=== PATIENT | male | born 1940 | race Caucasian/White ===

== ENCOUNTER 2019-08-29 09:46 | Emergency (ER) | payer OTHER, MEDICARE, SELFPAY ==
[2019-08-29 09:54] VITALS: BP 157/73; PULSE 55; RESP 16; TEMP 36.7; O2SAT 97
--- NOTE | 2019-08-29 10:23 | DI.CT_ITS ---
EXAM: CT SINUS W CLINICAL HISTORY: Concern for right mastoiditis. TECHNIQUE: A with contrast-enhanced sinus CT was carried out with intravenous administration of 70 c c of Omnipaque 350. COMPARISON: No exams were available for comparison FINDINGS: The paranasal sinuses are unremarkable save for a small retention cyst involving the sphenoid. There is no evidence of a mastoid effusion. As visualized the middle ear cavity and exterior auditory federico ls are intact. IMPRESSION: Aside from a very small sphenoid retention cyst, the sinuses are normal. There is nothing to suggest mastoiditis.
--- NOTE | 2019-08-29 10:30 | ED.GENADUL_ITS ---
Discharge Plan Disposition Patient Disposition: HOME Condition: Stable Discharge Details Chief Complaint: Cellulitis Clinical Impression: Cellulitis of face Primary Care Provider: Grazyna Colón ED Provider: Daniel Wyatt Home Meds and New Rx's Prescriptions: New amoxicillin-pot clavulanate [Augmentin] 875-125 mg tablet 1 tab PO BID Qty: 14 RF: 0 Continued atorvastatin 20 mg Tablet 20 mg PO DAILY RF: 0 cyanocobalamin (vitamin B-12) 1,000 mcg Tablet 1,000 mcg PO DAILY RF: 0 spironolactone 25 mg Tablet 12.5 mg PO DAILY RF: 0 amlodipine 10 mg Tablet 10 mg PO DAILY RF: 0 clonidine 0.3 mg/24 hr Patch Weekly 1 patch TRANSDERMAL QWEEK RF: 0 ergocalciferol (vitamin D2) 50,000 unit Capsule 50,000 unit PO QWEEK RF: 0 losartan 100 mg Tablet 100 mg PO DAILY RF: 0 aspirin [Aspirin Low Dose] 81 mg Tablet,Delayed Release (Dr/Ec) 81 mg PO DAILY RF: 0 Discharge Instructions Instructions: Cellulitis (ED) Additional Instructions: It is very important that you take your medication every 12 hours and return to the emergency department for any worsening symptoms or further concerns. If you remain stable you may return to the emergency department tomorrow morning for reassessment and reconsideration of admission. Referrals: [facility] Emergency Dept. [Outside] - 08/30/19 8:00 am (Return tomorrow morning for reassessment of your infection) Discharge Data Discharge Date/Time-TO BE ENTERED AT DEPARTURE: 08/29/19 15:55 Medical Decision Making Patient presenting to the emergency room for chief complaint of right ear pain. Patient states that 3 days ago he started having some discomfort to his right ear which now has turned into significant amount of swelling and pain. Patient states significant amount of malaise for the last 24 hours but denies any fever chills. Patient does state he had a similar episode to this approximately 30 years ago and was hospitalized with need of antibiotics and consideration of possible surgery. Patient said that that episode resolved just with antibiotics never needed surgery. Patient denies any injury or trauma. Physical exam shows significant erythema and edema to the right ear. This includes tenderness to the right mastoid, preauricular area along with the ear itself. Ear canal is significantly edematous and erythematous making it impossible to see the right TM. HEENT exam is otherwise unremarkable with no other noted findings. I am significantly concerned for infection including mastoiditis so plan to check labs, blood cultures, and CT imaging. After blood cultures drawn patient was ordered vancomycin and Zosyn pending results. Labs were reviewed and show a mild leukocytosis, patient does have decreased renal function so discussed with patient continuing with CT scan and adjusted dose which after discussion of risks versus benefit patient was in agreement with this. Patient's lactate is normal and labs are otherwise nondiagnostic. Review of CT imaging and speaking with radiologist shows no acute mastoiditis. Patient reassessed and remained stable. Patient was agreeable to admission as I feel that patient needs continued IV antibiotics for facial cellulitis. Melissa cunningham and very she does not have any beds available so contacted the [place] which patient gets his care mainly through. They had only bed availability for ICU level transfers and all other local beds were on a [id number] scenario. In discussing further transfer for the patient he reported that he would prefer to go home. Did discuss in detail risk versus benefit of inpatient care versus home care. In the end we agreed upon a plan of care for patient to return immediately for any significant worsening of symptoms otherwise patient to be discharged home and to return to the emergency department tomorrow morning for reassessment. Patient started on Augmentin and given first dose and tomorrow morning dose before he left. Patient and significant other both state clear understanding to return for worsening symptoms. After discussion of diagnosis and plan of care patient has no further needs, questions, or concerns and states clear understanding to return to the emergency department for any worsening symptoms. HPI General Mode of arrival: ambulatory . Date/Time Provider Initiated Documentation: 08/29/19 09:47 . Limitations to Documentation: no limitations . Information obtained by: patient and RN notes reviewed . History of Present Illness 79 year old M presents to the emergency department with the chief complaint of Right ear pain and swelling, described as moderate and similar to prior episodes, with intensity rated at 5. Quality is described as aching, and is localized to the right (ear). Patient started experiencing this day(s) (3) and it has been constant. No relieving factors improve symptom(s), No exacerbating factors reported . Patient did receive the following treatments prior to arrival, none Related Data Home Medications Medication Instructions Recorded Confirmed amlodipine 10 mg PO DAILY 08/29/19 08/29/19 amoxicillin-pot clavulanate 1 tab PO BID #14 tab 08/29/19 [Augmentin] aspirin [Aspirin Low Dose] 81 mg PO DAILY 08/29/19 08/29/19 atorvastatin 20 mg PO DAILY 08/29/19 08/29/19 clonidine 1 patch TRANSDERMAL QWEEK 08/29/19 08/29/19 cyanocobalamin (vitamin B-12) 1,000 mcg PO DAILY 08/29/19 08/29/19 ergocalciferol (vitamin D2) 50,000 unit PO QWEEK 08/29/19 08/29/19 losartan 100 mg PO DAILY 08/29/19 08/29/19 spironolactone 12.5 mg PO DAILY 08/29/19 08/29/19 Previous Rx's Medication Instructions Recorded amoxicillin-pot clavulanate 1 tab PO BID #14 tab 08/29/19 [Augmentin] Allergies Allergy/AdvReac Type Severity Reaction Status Date / Time No Known Allergies Allergy Unverified 08/29/19 09:54 General Stated Complaint: Cellulitis SHABANA: 3 Review of Systems Constitutional Constitutional: Denies chills, Denies fever(s), Denies headache(s) and Reports malaise ENT Ears, Nose, Mouth, and Throat: Reports as per HPI, Reports vertigo, Denies ear discharge, Reports otalgia, Reports facial pain, Denies headache(s), Denies hearing loss, Denies nasal congestion and Denies sore throat Cardiovascular Cardiovascular: Denies dyspnea Respiratory Respiratory: Denies cough and Denies dyspnea Integumentary/Breasts Skin/Breast: Reports skin pain and Reports skin swelling (right ear) Neurologic Neurologic: Reports vertigo and Denies headache(s) [facility] Social History Smoking/Tobacco Use Status: Current every day Alcohol Intake: never Drug use: Never Substance use type: does not use Do you feel safe at home: Yes Do you feel safe in your relationship?: Yes Exam Const General: cooperative and comfortable Orientation: alert and awake HENMT Ears: hearing grossly normal bilaterally, EAC abnormal erythema on the right, edema on the right and EAC tenderness on the right, external ear abnormal auricular tenderness on the right and pain with movement of external ear on the right, mastoid abnormal (tenderness right ), periauricular adenopathy on the right and unable to visualize TM on the right General nose exam: external nose normal Face and sinus: normal facial exam and sinuses nontender Mouth: oral mucosae normal, lip normal and tongue normal Throat: posterior oropharynx normal, tonsils normal and uvula midline Neck Neck: normal visual inspection, full ROM, no lymphadenopathy, no meningeal signs, trachea midline and supple Resp Effort & Inspection: normal respiratory effort and able to speak in complete sentences Auscultation: clear to auscultation bilaterally Cardio Rate: regular rate Rhythm: regular rhythm Neuro General: alert, awake, gait normal, moves all extremities and CN's II-XI intact bilaterally Course Vital Signs Vital signs: Vital Signs Temperature 36.7 C 08/29/19 09:54 Pulse 55 L 08/29/19 09:54 Respiratory Rate 16 08/29/19 09:54 Blood Pressure 157/73 H 08/29/19 09:54 Pulse Oximetry 97 08/29/19 09:54 Temperature 36.7 C 08/29/19 09:54 Temperature Source Temporal Artery Scan 08/29/19 09:54 Pulse 55 L 08/29/19 09:54 Respiratory Rate 16 08/29/19 09:54 Respiratory Effort Non-Labored 08/29/19 09:57 Blood Pressure 157/73 H 08/29/19 09:54 Blood Pressure Position Sitting 08/29/19 09:54 Pulse Oximetry 97 08/29/19 09:54 Oxygen Delivery Method Room Air 08/29/19 09:54 Oxygen Flow Rate 0 08/29/19 09:54 Pain Level 5 08/29/19 09:54 Lab/Test Results Lab/Test Results: 08/29/19 10:09 Blood Blood Culture - Pending 08/29/19 10:09 Blood Blood Culture - Pending
[2019-08-29 10:52] LABS: Abs Immature Grans 0.04 k/cumm (0.0-0.09); Absolute Eosinophil Count 0.22 k/cumm (0.0-0.7); Absolute Lymphocyte Count 1.11 k/cumm (1.2-3.4); Basophils % 0.4; Eosinophils % 1.9; HCT 43.9 % (40.0-50.0); Immature Grans % 0.4; Lymphocytes % 9.7; Mean Corp. HGB Concentration 34.2 g/dL (32.0-36.0); Mean Corpuscular Hemoglobin 30.1 pg (27.0-33.0); Mean Platelet Volume 9.6 fL (8.0-11.0); Monocytes % 10.5; Neutrophils % 77.1; Platelet Count 218 x1000/uL (130-400); RBC 4.99 m/cumm (4.50-6.00); White Blood Cell Count 11.42 k/cumm (4.4-10.8)
[2019-08-29] MEDS: PIPERACILLIN/TAZO 4.5 GM in Normal Saline 100 ML IVPB (10:52)
[2019-08-29 10:53] LABS: Absolute Basophil Count 0.05 k/cumm (0.0-0.2)
[2019-08-29 10:59] VITALS: BP 120/58; PULSE 50; RESP 18; TEMP 36.8; O2SAT 96
[2019-08-29 11:15] LABS: ALT 24 U/L (16-63); AST 12 U/L (15-37); Albumin 3.5 g/dL (3.4-5.0); Alkaline Phosphatase 103 U/L (46-116); Anion Gap 14.7 mmol/L (3-11); BUN 31 mg/dL (7-18); Bilirubin, Total 0.8 mg/dL (0.2-1.0); CO2 22.3 mmol/L (21.0-32.0); CREATININE 2.05 mg/dL (0.70-1.30); Calcium 8.6 mg/dL (8.5-10.1); Chloride 101 mmol/L (98-107); Estimated GFR 31.48 (mL/min/1.73m2); Glucose 266 mg/dL (70-100); Potassium 4.2 mmol/L (3.5-5.1); Sodium 138 mmol/L (136-145); Total Protein 7.7 g/dL (6.4-8.2)
[2019-08-29] MEDS: Normal Saline 500 ML IV ×2 (11:56→14:17)
[2019-08-29] MEDS: Omnipaque 350 MG/ML 100 ML BTL IV (13:06)
[2019-08-29 13:55] VITALS: BP 152/71; PULSE 50; TEMP 35.8; O2SAT 90
[2019-08-29 15:17] VITALS: BP 143/60; PULSE 55; RESP 16; TEMP 36.7; O2SAT 97
[2019-08-29] MEDS: Amoxicillin 875/Clav. 125 TAB PO (15:42)
[2019-08-29] MEDS: Amoxicillin 875/Clav. 125 TAB (15:52)
[2019-08-29 15:54] VITALS: BP 143/60; PULSE 55; RESP 16; TEMP 36.7; O2SAT 97
== END 2019-08-29 15:55 | disposition home or self-care (01) ==
PROVIDERS: Emergency Provider Nurse Practitioner Family; PCP Student in an Organized Health Care Education/Training Program
DX: H60.11 Cellulitis of right external ear (principal)
CPT/HCPCS: 80053; 87040; 96361; 96365; 96366; 96367; 99285; 70487; 83605; 85025; 99284; J2543; J3370; J3490

== ENCOUNTER 2019-08-30 08:31 | Inpatient (IN) | payer OTHER, MEDICARE, SELFPAY ==
[2019-08-30 08:37] VITALS: BP 160/76; PULSE 58; RESP 18; TEMP 36.1; O2SAT 95
--- NOTE | 2019-08-30 08:52 | ED.GENADUL_ITS ---
Discharge Plan Disposition Patient Disposition: [facility] INPATIENT Condition: Stable Discharge Details Chief Complaint: Cellulitis Clinical Impression: Cellulitis of ear Admit Date/Time: 08/30/19 11:30 Admit Provider: Johnna Gabriel Attending Provider: Johnna Gabriel Primary Care Provider: Grazyna Colón ED Provider: Daniel Wyatt Discharge Instructions Forms: Nursing Discharge Form Referrals: Grazyna Colón [Primary Care Provider] - Medical Decision Making Patient presenting to the emergency department for recheck of facial cellulitis. Patient was seen by myself yesterday afternoon and due to bed availability we attempted outpatient therapy. Patient was given vancomycin and Zosyn and sent home on Augmentin. Patient states some sensation of slight reduction of swelling, denies any fever chills, states continued pain and discomfort. Physical exam shows continued significant erythema to the right ear throughout its entirety with swelling, erythema to the posterior aspects of the mastoid, and preauricular swelling and erythema now extending to the corner of the orbit and more on the forehead. Patient otherwise appears nontoxic, non-hypotensive, and is afebrile. Given that erythema has spread and advanced more on to the face I do feel again that IV labs and antibiotics are required. Patient given vancomycin and Unasyn. Patient is already pending blood cultures from yesterday's visit. Spoke with [facility] transfer center and they reported that they were only taking ICU level patients at this time. I feel the patient does require admission for continued IV antibiotics given worsening erythema and spread our hospitalist was consulted. After discussion with hospitalist she does state appropriate concern for consideration of malignant otitis externa. I did speak with radiologist in regards to yesterday scan and he notes nothing on CT imaging. I also consulted ENT and spoke with Dr. Noe. Spoke with Dr. Noe and reviewed CT imaging along with labs and patient condition with him. He recommended continued IV antibiotics to include vancomycin and Zosyn. He did state that at this time did not feel that patient needed emergent surgical consultation but if needed he may be recontacted. Patient admitted to hospitalist service and recommendations were communicated. HPI General Mode of arrival: ambulatory . Date/Time Provider Initiated Documentation: 08/30/19 08:32 . Limitations to Documentation: no limitations . Information obtained by: patient and RN notes reviewed . History of Present Illness 79 year old M presents to the emergency department with the chief complaint of Facial cellulitis, described as moderate, with intensity rated at 5. Quality is described as aching, and is localized to the face. Patient started experiencing this day(s) (4) and it has been constant. No relieving factors improve symptom(s), No exacerbating factors reported . Patient notes no other symptoms.. Patient did receive the following treatme nts prior to arrival, other (Took his prescribed Augmentin) Related Data Home Medications Medication Instructions Recorded Confirmed amlodipine 10 mg PO DAILY 08/29/19 08/30/19 amoxicillin-pot clavulanate 1 tab PO BID #14 tab 08/29/19 08/30/19 [Augmentin] aspirin [Aspirin Low Dose] 81 mg PO DAILY 08/29/19 08/30/19 atorvastatin 20 mg PO DAILY 08/29/19 08/30/19 clonidine 1 patch TRANSDERMAL QWEEK 08/29/19 08/30/19 cyanocobalamin (vitamin B-12) 1,000 mcg PO DAILY 08/29/19 08/30/19 ergocalciferol (vitamin D2) 50,000 unit PO QWEEK 08/29/19 08/30/19 losartan 100 mg PO DAILY 08/29/19 08/30/19 spironolactone 12.5 mg PO DAILY 08/29/19 08/30/19 Previous Rx's Medication Instructions Recorded amoxicillin-pot clavulanate 1 tab PO BID #14 tab 08/29/19 [Augmentin] Allergies Allergy/AdvReac Type Severity Reaction Status Date / Time No Known Allergies Allergy Unverified 08/30/19 08:43 General Stated Complaint: Cellulitis SHABANA: 3 Review of Systems Constitutional Constitutional: Denies body ache(s), Denies chills and Denies fever(s) Cardiovascular Cardiovascular: Denies chest pain and Denies dyspnea Respiratory Respiratory: Denies dyspnea Integumentary/Breasts Skin/Breast: Reports as per HPI, Reports erythema, Reports skin pain and Reports skin swelling Neurologic Neurologic: Denies confusion and Denies sensory deficit Psychiatric Psychiatric: Denies confusion [facility] Social History Smoking/Tobacco Use Status: Former Tobacco Use Alcohol Intake: never Drug use: Never Substance use type: does not use Do you feel safe at home: Yes Do you feel safe in your relationship?: Yes Exam Const General: cooperative, no acute distress and not ill appearing Orientation: alert, awake and oriented x3 HENMT Ears: hearing grossly normal bilaterally and unable to visualize TM on the right General nose exam: external nose normal Mouth: moist mucous membranes Throat: posterior oropharynx normal, tonsils normal and uvula midline Neck Neck: normal visual inspection, full ROM, no meningeal signs, trachea midline and lymphadenopathy right anterior cervical rubbery and tender Resp Effort & Inspection: normal respiratory effort, able to speak in complete sentences and no respiratory distress Cardio Rate: regular rate Rhythm: regular rhythm Heart Sounds: S1 normal and S2 normal Skin Rashes: rashes noted swelling right ear color red and with an erythematous base and surface erythematous; fluctuant not assessed Neuro General: alert, awake, oriented x3, moves all extremities and no focal motor deficits Sensory Exam: no sensory deficits noted Course Vital Signs Vital signs: Vital Signs Temperature 36.1 C L 08/30/19 08:37 Pulse 58 L 08/30/19 08:37 Respiratory Rate 18 08/30/19 08:37 Blood Pressure 160/76 H 08/30/19 08:37 Pulse Oximetry 95 08/30/19 08:37 Temperature 36.1 C L 08/30/19 08:37 Temperature Source Tympanic 08/30/19 08:37 Pulse 58 L 08/30/19 08:37 Respiratory Rate 18 08/30/19 08:37 Respiratory Effort Non-Labored 08/30/19 08:41 Blood Pressure 160/76 H 08/30/19 08:37 Blood Pressure Position Sitting 08/30/19 08:37 Pulse Oximetry 95 08/30/19 08:37 Oxygen Delivery Method Room Air 08/30/19 08:37 Oxygen Flow Rate 0 08/30/19 08:37
[2019-08-30 09:10] LABS: Lactate 0.9 mmol/L (0.6-1.4)
[2019-08-30 09:13] LABS: Abs Immature Grans 0.05 k/cumm (0.0-0.09); Absolute Basophil Count 0.04 k/cumm (0.0-0.2); Absolute Eosinophil Count 0.27 k/cumm (0.0-0.7); Absolute Lymphocyte Count 1.39 k/cumm (1.2-3.4); Absolute Monocyte Count 1.45 k/cumm (0.11-0.7); Absolute Neutrophil Count 7.46 k/cumm (1.2-6.7); Basophils % 0.4; Eosinophils % 2.5; HCT 40.8 % (40.0-50.0); HGB 14.2 g/dL (13.5-17.5); Immature Grans % 0.5; Mean Corp. HGB Concentration 34.8 g/dL (32.0-36.0); Mean Corpuscular Hemoglobin 30.5 pg (27.0-33.0); Mean Corpuscular Volume 87.6 fL (80-95); Mean Platelet Volume 9.6 fL (8.0-11.0); Monocytes % 13.6; Platelet Count 234 x1000/uL (130-400); RBC 4.66 m/cumm (4.50-6.00); RBC Distribution Width 12.9 % (11.8-14.1); White Blood Cell Count 10.66 k/cumm (4.4-10.8)
[2019-08-30] MEDS: Acetaminophen 325 MG TAB 650 MG PO (09:17)
[2019-08-30] MEDS: AMPICILLIN/SULBACTAM 3 GM in Normal Saline 100 ML IVPB (09:18)
[2019-08-30 09:34] LABS: ALT 28 U/L (16-63); AST 13 U/L (15-37); Albumin 3.3 g/dL (3.4-5.0); Alkaline Phosphatase 89 U/L (46-116); Anion Gap 10.7 mmol/L (3-11); BUN 26 mg/dL (7-18); CO2 23.3 mmol/L (21.0-32.0); CREATININE 1.99 mg/dL (0.70-1.30); Chloride 101 mmol/L (98-107); Estimated GFR 32.58 (mL/min/1.73m2); Glucose 227 mg/dL (70-100); Potassium 3.8 mmol/L (3.5-5.1); Sodium 135 mmol/L (136-145); Total Protein 7.4 g/dL (6.4-8.2)
[2019-08-30 10:33] LABS: C-Reactive Protein 7.02 mg/dL (0.0-0.3)
[2019-08-30 10:38] LABS: Hemoglobin A1C 8.9 % (4.5-6.2)
[2019-08-30 11:00] LABS: ESR 30 mm/hr (1-20)
[2019-08-30 12:21] LABS: Procalcitonin 0.3 ng/mL
[2019-08-30] MEDS: VANCOMYCIN 1,250 MG in Normal Saline 250 ML 166.667 MG IV (13:42)
--- NOTE | 2019-08-30 14:04 | W.PM.HP.N ---
Date of service: 08/30/19 Time of Service: 14:04 Assessment and Plan Assessment and plan (1) Cellulitis of right ear: Status: Acute Assessment and plan: Case discussed with ENT, recommend IV Vanco and Zosyn. CRP elevated. No leukocytosis. Blood cultures with no growth at 24 hours. Wound culture pending. Continue to monitor culture results. Repeat labs tomorrow morning. Continue IV antibiotics. (2) SANTOS (acute kidney injury): Status: Acute Assessment and plan: Hold ARB and aldactone. Continue IV fluids. Repeat BMP tomorrow morning. UA pending. (3) Diabetes: Status: Chronic Assessment and plan: Not a new diagnosis. Previously on oral agent, currently diet controlled. A1c elevated at 8.9. Monitor blood glucose at , cover with short acting insulin via sliding scale. (4) Hypertension: Status: Chronic Assessment and plan: Continue clonidine patch and amlodipine. Hold aldactone and losartan in the setting of SANTOS. Monitor blood pressure. (5) Hyperlipidemia: Status: Chronic Assessment and plan: Continue statin therapy. (6) DVT prophylaxis: Status: Acute Assessment and plan: Subcutaneous heparin. (7) Discharge planning issues: Status: Acute Assessment and plan: He is a FULL CODE. This case was discussed with Dr. Gabriel who is in agreement. History of Present Illness History of Present Illness Chief Complaint: Right ear cellulitis Narrative: Jimbo Viramontes is a 79 year old man with a past medical history significant for hypertension, hyperlipidemia and diet controlled diabetes (previously on oral agent), who initially presented [facility] ED yesterday with reports of a one day history of right ear pain and swelling. He had mild leukocytosis at that time, he was afebrile. He had a CT which showed a very small sphenoid retention cyst, but nothing to suggest mastoiditis. Blood cultures were obtained. He was given one dose of IV Zosyn and Vancomycin. He was considered for admission at that time, however, there were no beds available, so he was discharged home on Augmentin. He returned back to the ED today with reports of ongoing right ear pain and swelling. He states he had a headache last night and did not sleep well due to the discomfort in his ear. In the ED, his labs were notable for elevated BUN at 26 and creatinine of 1.99 (slightly improved from the day prior). The leukocytosis noted on the day prior had resolved. His CRP was elevated at 7.02. His glucose was elevated and his Hgb A1c was noted to be 8.9. His blood cultures show no growth at 24 hours. The ER attending provider discussed his case with Dr. Noe, who recommended Vancomycin and Zosyn. At the time of his admission to the med/surg floor, he reports that his right ear already feels better. He continues to have tenderness to the right external ear. He is afebrile. He denies any fevers or chills at home. He did not sleep well last night due to pain, he is tired today. He has had a poor appetite for 2-3 days, he denies nausea, vomiting or diarrhea. He denies dizziness or lightheadedness, but he does feel off-balance at times. His hearing is muffled in his right ear. No vision changes. He denies shortness of breath, coughing, wheezing, chest pain/pressure, he occasionally has lower extremity edema. He has not been having regular bowel movements over the last 2 days. He endorses urinary frequency and urgency, no dysuria or hematuria. UA pending. He denies any injury to his ear. He recalls having cellulitis of an ear 30 years ago, he is not sure which ear. He also endorses a history of diabetes, he was previously on an oral agent, however his A1c improved and he was controlling his glucose with his diet. Review of Systems All systems reviewed & are unremarkable except as noted in HPI and below PFSH Medical History (Updated 08/30/19 @ 14:49 by Kaitlyn Mirza NP) Diabetes (Chronic) Hyperlipidemia (Chronic) Hypertension (Chronic) Social History Smoking/Tobacco Use Status: Former Tobacco Use Alcohol Intake: never Drug use: Never Substance use type: does not use Do you feel safe at home: Yes Do you feel safe in your relationship?: Yes Meds Home Medications and Allergies Home Medications Medication Instructions Recorded Confirmed Type amlodipine 10 mg PO DAILY 08/29/19 08/30/19 History amoxicillin-pot clavulanate 1 tab PO BID #14 tab 08/29/19 08/30/19 Rx [Augmentin] aspirin [Aspirin Low Dose] 81 mg PO DAILY 08/29/19 08/30/19 History atorvastatin 20 mg PO DAILY 08/29/19 08/30/19 History clonidine 1 patch TRANSDERMAL QWEEK 08/29/19 08/30/19 History cyanocobalamin (vitamin B-12) 1,000 mcg PO DAILY 08/29/19 08/30/19 History ergocalciferol (vitamin D2) 50,000 unit PO QWEEK 08/29/19 08/30/19 History losartan 100 mg PO DAILY 08/29/19 08/30/19 History spironolactone 12.5 mg PO DAILY 08/29/19 08/30/19 History Allergies Allergy/AdvReac Type Severity Reaction Status Date / Time No Known Allergies Allergy Unverified 08/30/19 08:43 Exam Narrative Exam Narrative: General: well appearing man, sitting up in the chair, alert and oriented, pleasant and cooperative, answers questions appropriately. HEENT: right ear with swelling, erythema of external ear and surrounding ear extending approximately 2 inches around ear, and extending to right lateral orbit. Erythema does extend to the eye. EOMI, no pain with EOM. No vision changes. There is no active drainage. R TM with erythema. R ear tender on palpation. Hearing intact. Left ear with normal external ear exam. Mucous membranes slightly dry. Neck: supple. Cardiovascular: heart has regular rate and rhythm, no murmur appreciated. Respiratory: respirations even and unlabored, lung sounds clear to auscultation bilaterally. GI: normoactive bowel sounds, abdomen soft, nontender on palpation, no masses appreciated. Extremities: trace edema to right ankle. Moves all extremities with equal strength. Results Labs Result diagrams: 08/31/19 06:30 08/31/19 06:30 Labs: Laboratory Results - last 24 hr 08/30/19 08/30/19 08/30/19 09:00 09:00 09:00 WBC 10.66 RBC 4.66 Hgb 14.2 Hct 40.8 MCV 87.6 MCH 30.5 MCHC 34.8 RDW 12.9 Plt Count 234 MPV 9.6 Immature Gran % 0.5 Neutrophils % 70.0 Lymphocytes % 13.0 Monocytes % 13.6 Eosinophils % 2.5 Basophils % 0.4 Absolute Neutrophils 7.46 H Absolute Lymphocytes 1.39 Absolute Monocytes 1.45 H Absolute Eosinophils 0.27 Absolute Basophils 0.04 ESR Sodium 135 L Potassium 3.8 Chloride 101 Carbon Dioxide 23.3 Anion Gap 10.7 BUN 26 H Creatinine 1.99 H Estimated GFR/1.73 m2 32.58 Glucose 227 H Hemoglobin A1c Lactate 0.9 Calcium 9.0 Total Bilirubin 1.0 AST 13 L ALT 28 Alkaline Phosphatase 89 C-Reactive Protein Total Protein 7.4 Albumin 3.3 L Procalcitonin 08/30/19 08/30/19 08/30/19 09:00 09:00 09:00 WBC RBC Hgb Hct MCV MCH MCHC RDW Plt Count MPV Immature Gran % Neutrophils % Lymphocytes % Monocytes % Eosinophils % Basophils % Absolute Neutrophils Absolute Lymphocytes Absolute Monocytes Absolute Eosinophils Absolute Basophils ESR 30 H Sodium Potassium Chloride Carbon Dioxide Anion Gap BUN Creatinine Estimated GFR/1.73 m2 Glucose Hemoglobin A1c 8.9 H Lactate Calcium Total Bilirubin AST ALT Alkaline Phosphatase C-Reactive Protein 7.02 H Total Protein Albumin Procalcitonin 08/30/19 09:00 WBC RBC Hgb Hct MCV MCH MCHC RDW Plt Count MPV Immature Gran % Neutrophils % Lymphocytes % Monocytes % Eosinophils % Basophils % Absolute Neutrophils Absolute Lymphocytes Absolute Monocytes Absolute Eosinophils Absolute Basophils ESR Sodium Potassium Chloride Carbon Dioxide Anion Gap BUN Creatinine Estimated GFR/1.73 m2 Glucose Hemoglobin A1c Lactate Calcium Total Bilirubin AST ALT Alkaline Phosphatase C-Reactive Protein Total Protein Albumin Procalcitonin 0.3 Last Vital Signs Temp 36.1 C L 08/30/19 08:37 Pulse 58 L 08/30/19 08:37 Resp 18 08/30/19 08:37 BP 160/76 H 08/30/19 08:37 Pulse Ox 95 08/30/19 08:37
[2019-08-30] MEDS: Heparin 5,000 UNITS/ML VIAL 5000 UNITS SC ×2 (16:54→22:10)
[2019-08-30 17:06] VITALS: BP 169/79; PULSE 46; RESP 16; TEMP 36.6; O2SAT 98
[2019-08-30 19:15] VITALS: BP 152/81; PULSE 47; RESP 18; TEMP 36.8; O2SAT 100
[2019-08-30] MEDS: Atorvastatin 20 MG TAB PO (19:39)
[2019-08-30] MEDS: amLODIPine 10 MG TAB PO (19:39)
[2019-08-30] MEDS: Normal Saline Flush 10 ML SYR IVP (19:40)
[2019-08-30 21:40] VITALS: BP 196/91
[2019-08-30 22:23] LABS: Bilirubin Negative (Negative); Blood Negative (Negative); Clarity Clear (Clear); Glucose 250 mg/dL (Negative); Ketones Negative (Negative); Leukocyte Esterase Negative (Negative); Nitrite Negative (Negative)
[2019-08-30 22:32] LABS: Bacteria Negative HPF (Negative); C & S Indicated? No; Casts Negative LPF (Negative); Crystals Negative HPF (Negative); Epithelial Cells Negative HPF (Negative); Mucus Negative (Negative); Other Cells Negative (Negative); RBC Negative (0-2); WBC 0-2 HPF (0-5)
[2019-08-30] MEDS: Insulin Aspart 300 UNITS/3 ML PEN SC (22:37)
[2019-08-30] MEDS: Normal Saline 1,000 ML 150 ML IV (22:39)
[2019-08-31] VITALS (7 sets, daily range): BP systolic 125–143; BP diastolic 54–84; PULSE 42–60; RESP 14–19; TEMP 36.4–37.5; O2SAT 95–100
[2019-08-31] MEDS: Acetaminophen 325 MG TAB PO ×3 (04:42→17:14)
[2019-08-31] MEDS: Normal Saline 1,000 ML 150 ML IV ×2 (04:43→12:02)
[2019-08-31] MEDS: Heparin 5,000 UNITS/ML VIAL 5000 UNITS SC ×3 (06:36→21:34)
[2019-08-31 07:23] LABS: Abs Immature Grans 0.04 k/cumm (0.0-0.09); Absolute Basophil Count 0.05 k/cumm (0.0-0.2); Absolute Eosinophil Count 0.41 k/cumm (0.0-0.7); Absolute Lymphocyte Count 1.66 k/cumm (1.2-3.4); Absolute Monocyte Count 1.21 k/cumm (0.11-0.7); Absolute Neutrophil Count 5.08 k/cumm (1.2-6.7); Basophils % 0.6; Eosinophils % 4.9; HCT 38.5 % (40.0-50.0); HGB 13.1 g/dL (13.5-17.5); Immature Grans % 0.5; Lymphocytes % 19.6; Mean Corpuscular Volume 88.1 fL (80-95); Mean Platelet Volume 9.9 fL (8.0-11.0); Monocytes % 14.3; Neutrophils % 60.1; Platelet Count 227 x1000/uL (130-400); RBC 4.37 m/cumm (4.50-6.00); RBC Distribution Width 12.8 % (11.8-14.1); White Blood Cell Count 8.45 k/cumm (4.4-10.8)
[2019-08-31 07:39] LABS: Anion Gap 9.3 mmol/L (3-11); BUN 13 mg/dL (7-18); C-Reactive Protein 3.67 mg/dL (0.0-0.3); CO2 24.7 mmol/L (21.0-32.0); CREATININE 1.86 mg/dL (0.70-1.30); Calcium 8.7 mg/dL (8.5-10.1); Chloride 107 mmol/L (98-107); Estimated GFR 35.22 (mL/min/1.73m2); Glucose 183 mg/dL (70-100); Magnesium 1.8 mg/dL (1.8-2.4); Sodium 141 mmol/L (136-145)
[2019-08-31 08:27] LABS: Procalcitonin 0.2 ng/mL
[2019-08-31] MEDS: Cyanocobalamin 500 MCG TAB 1000 MCG PO (09:16)
[2019-08-31] MEDS: Aspirin E.C. 81 MG TABEC PO (09:16)
[2019-08-31] MEDS: PIPERACILLIN/TAZO 2.25 GM in Normal Saline 50 ML IVPB ×3 (09:16→21:34)
--- NOTE | 2019-08-31 09:21 | INITIAL_ITS ---
- If Service Date Differs Date of service: 08/31/19 Time of Service: 09:21 Care Management Initial Assess REASON FOR HOSPITALIZATION:: Facial and auricular cellulitis, malignant otitis technical consultant PAST MEDICAL HISTORY/PAST SURGICAL HISTORY:: Medical History: Diabetes, hyperlipidemia, and hypertension. No surgical history on file. PREVIOUS FUNCTIONAL STATUS/SOCIAL/FAMILY SUPPORTS:: Jimbo lives off the grid in a single family home in [place] with his and dog. 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 He reports he spends saini getting ready for winter. He is independent with ADLs at baseline. CURRENT FUNCTIONAL STATUS:: Jimbo is lying in bed when meets with him. He is pleasant and readily engages in conversation. He states he is feeling better and expresses a desire to return home as soon as possible as he has a lot of work to do around his home to get ready for the winter months. ADVANCE DIRECTIVES:: None on file. Has patient been provided with information about the portal?: Yes Did the patient sign up for the portal?: No CODE STATUS:: Full Code INSURANCE COVERAGE / FINANCIAL ISSUES:: Medicare. CURRENT HOME/COMMUNITY SERVICES/EQUIPMENT:: None currently. PRIMARY CARE PHYSICIAN:: Grazyna Colón POTENTIAL DISCHARGE NEEDS:: Follow-up with primary care physician and discharge plan of care. PATIENT/FAMILY EDUCATION NEEDS:: Discharge plan, limitations, follow up plan, Ask Me Three. ANTICIPATED BARRIERS TO DISCHARGE:: None. TRANSPORTATION:: Jimbo will be transported home by his via private vehicle. PLAN:: Jimbo will be discharged home when medically cleared by provider. Anticipate no additional services needed at time of discharge. Family member will transport patient home.
[2019-08-31 09:54] LABS: ESR 25 mm/hr (1-20)
--- NOTE | 2019-08-31 10:43 | PHARADMIT ---
Addendum entered by Dolly Lugo 09/01/19 13:02: Pharmacy Note Subjective improving infection Objective bp 160/75, afebrile, HR 48, FS 214, skin culture shows moderate growth of normal lyndsey Assessment IV vanco/zosyn abx switched to PO augmentin,doxycycline and added probiotic, restarted spironolactone from home med list, insulin SS dose increased Plan provider notes losartan to be restarted when HR over 55 Original Note: Admission Pharmacy Clinical Review FACIAL & AURICULAR CELLULITIS, MILG OTITIS EXTERNAL Code Status Full Code Current Weight Wgt-95.254 kg Renally Cleared and Narrow Therapeutic Index Meds CrCl~ 35 mL/min Meds-OK QTc Value / Action Taken NA BP Control, Fever BP- 143/84 Tmax- 36.8C Electrolytes reviewed Na- 141 K+4.0 Mag-1.8 DVT Prophylaxis Heparin Opiate Usage / Scheduled Bowel Regimen Ordered No Yes Plt/SCr for Heparin / Enoxaparin Plts-227 SCR_1.86 INR for Warfarin NA H/H stable, WBC/Bands H&H- 131./.38.5 WBC- 8.45 Antibiotic appropriateness Zosyn,Vancomycin Cultures and Sensitivities Ear culture -Pending Surgical ABX d/c within 24 hr NA DM control / Insulin Dosing BG-183 aspart Heart Failure (Check EF%) (RYNE's, B-Block, Diuretics) Norvasc, IV to PO Switch No Home Meds Reviewed Yes Home Meds Not Ordered Augmentin. Losartan, Spironolactone, Comments Pop Clonidine TTS
[2019-08-31] MEDS: Insulin Aspart 300 UNITS/3 ML PEN SC ×2 (12:01→17:16)
[2019-08-31] MEDS: VANCOMYCIN 1,250 MG in Normal Saline 250 ML 166.667 MG IV (12:28)
--- NOTE | 2019-08-31 13:48 | W.PM.PROGNOT ---
Date of Service Date of service: 08/31/19 Time of Service: 13:59 Assessment and Plan Assessment and plan (1) Cellulitis of right ear: Status: Acute Assessment and plan: Case discussed with ENT by ER provider, recommended IV Vanco and Zosyn. CRP improved to 3.67 from 7.02. No leukocytosis. Blood cultures with no growth at 48 hours. Wound culture showing normal lyndsey. Continue to monitor culture results. Repeat labs tomorrow morning. Continue IV antibiotics. (2) SANTOS (acute kidney injury): Status: Acute Assessment and plan: Possibly with history of renal disease. Nursing to obtain records from his PCP. Continue to hold ARB and aldactone. Continue IV fluids at decreased rate. Repeat BMP tomorrow morning. UA as above. Bladder scan to assess post void residual. (3) Diabetes: Status: Chronic Assessment and plan: Not a new diagnosis. Previously on oral agent, currently diet controlled. A1c elevated at 8.9. Fingersticks elevated. Monitor blood glucose at AC, cover with short acting insulin via sliding scale, increase to moderate scale. (4) Hypertension: Status: Chronic Assessment and plan: Blood pressure has been within an acceptable range. Continue clonidine patch and amlodipine. Hold aldactone and losartan in the setting of SANTOS. Monitor blood pressure. (5) Hyperlipidemia: Status: Chronic Assessment and plan: Continue statin therapy. (6) DVT prophylaxis: Status: Acute Assessment and plan: Subcutaneous heparin. (7) Discharge planning issues: Status: Acute Assessment and plan: He is a FULL CODE. This case was discussed with Dr. Gabriel who is in agreement. Subjective Subjective Interval history since last seen: Mr. Viramontes did not sleep well last night due to headache/right ear pain. He reports that the pain is improved today, he is taking acetaminophen with some relief. He denies drainage from his right hear. Sound is muffled in the right ear. He denies eye pain, vision changes, dizziness, shortness of breath, coughing, wheezing, chest pain/pressure, palpitations. He is eating and drinking, no nausea, vomiting or diarrhea. Exam Narrative Exam Narrative: General: well appearing man, sitting up in bed, alert and oriented, pleasant and cooperative, answers questions appropriately. HEENT: right ear with swelling, erythema of external ear and surrounding ear extending approximately 1-2 inches around ear onto scalp, and extending to right lateral orbit. Erythema does extend to the eye. EOMI, no pain with EOM. No vision changes. There is no active drainage. R TM with erythema. R ear tender on palpation. Hearing intact. Left ear with normal external ear exam. Mucous membranes slightly dry. Neck: supple. Cardiovascular: heart has regular rate and rhythm, no murmur appreciated. Respiratory: respirations even and unlabored, lung sounds clear to auscultation bilaterally. GI: normoactive bowel sounds, abdomen soft, nontender on palpation, no masses appreciated. Extremities: No clubbing, cyanosis or edema. Moves all extremities with equal strength. Objective Objective Clinical Data: Abnormal lab results 08/30/19 08/31/19 08/31/19 Range/Units 22:05 06:30 06:30 RBC 4.37 L (4.50-6.00) m/cumm Hgb 13.1 L (13.5-17.5) g/dL Hct 38.5 L (40.0-50.0) % Absolute Monocytes 1.21 H (0.11-0.7) k/cumm ESR 25 H (1-20) mm/hr Creatinine 1.86 H (0.70-1.30) mg/dL Glucose 183 H (70-100) mg/dL C-Reactive Protein 3.67 H (0.0-0.3) mg/dL Urine Protein 30 H (Negative) mg/dL Urine Urobilinogen 4.0 H (Up TO 0.2) EU/dL Urine Glucose 250 H (Negative) mg/dL Vital Signs Temperature 36.7 C 08/31/19 11:53 Temperature Source Tympanic 08/31/19 11:53 Pulse 47 L 08/31/19 11:53 Pulse Rhythm Regular 08/31/19 01:31 Respiratory Rate 14 08/31/19 11:53 Respiratory Effort Non-Labored 08/31/19 01:31 Respiratory Depth Normal 08/31/19 01:31 Respiratory Pattern Normal 08/31/19 01:31 Blood Pressure 140/63 08/31/19 11:53 Blood Pressure Position Sitting 08/30/19 08:37 Pulse Oximetry 100 08/31/19 11:53 Oxygen Delivery Method Room Air 08/31/19 11:53 Oxygen Flow Rate 0 08/31/19 11:53 Pain Level 0 08/31/19 11:53 Comment 08/31/19 04:00 Intake & Output 08/30/19 08/31/19 08/31/19 23:59 11:59 23:59 Intake Total 800 / 800 2059 Output Total 350 / 350 1150 / 1150 Balance 450 / 450 910 / 910 Weight 95.254 kg Intake: IV 560 / 560 2059 Oral 240 / 240 Output: Urine 350 / 350 1150 / 1150 Other: Urine Color Yellow Pale Urine Appearance Clear Clear Urine Odor Normal None Comment Sample sent to lab Voiding Methods Urinal Urinal Laboratory Results WBC 8.45 k/cumm (4.4-10.8) 08/31/19 06:30 RBC 4.37 m/cumm (4.50-6.00) L 08/31/19 06:30 Hgb 13.1 g/dL (13.5-17.5) L 08/31/19 06:30 Hct 38.5 % (40.0-50.0) L 08/31/19 06:30 MCV 88.1 fL (80-95) 08/31/19 06:30 MCH 30.0 pg (27.0-33.0) 08/31/19 06:30 MCHC 34.0 g/dL (32.0-36.0) 08/31/19 06:30 RDW 12.8 % (11.8-14.1) 08/31/19 06:30 Plt Count 227 x1000/uL (130-400) 08/31/19 06:30 MPV 9.9 fL (8.0-11.0) 08/31/19 06:30 Immature Gran % 0.5 08/31/19 06:30 Neutrophils % 60.1 08/31/19 06:30 Lymphocytes % 19.6 08/31/19 06:30 Monocytes % 14.3 08/31/19 06:30 Eosinophils % 4.9 08/31/19 06:30 Basophils % 0.6 08/31/19 06:30 Absolute Neutrophils 5.08 k/cumm (1.2-6.7) 08/31/19 06:30 Absolute Lymphocytes 1.66 k/cumm (1.2-3.4) 08/31/19 06:30 Absolute Monocytes 1.21 k/cumm (0.11-0.7) H 08/31/19 06:30 Absolute Eosinophils 0.41 k/cumm (0.0-0.7) 08/31/19 06:30 Absolute Basophils 0.05 k/cumm (0.0-0.2) 08/31/19 06:30 ESR 25 mm/hr (1-20) H 08/31/19 06:30 Sodium 141 mmol/L (136-145) 08/31/19 06:30 Potassium 4.0 mmol/L (3.5-5.1) 08/31/19 06:30 Chloride 107 mmol/L (98-107) 08/31/19 06:30 Carbon Dioxide 24.7 mmol/L (21.0-32.0) 08/31/19 06:30 Anion Gap 9.3 mmol/L (3-11) 08/31/19 06:30 BUN 13 mg/dL (7-18) D 08/31/19 06:30 Creatinine 1.86 mg/dL (0.70-1.30) H 08/31/19 06:30 Estimated GFR/1.73 m2 35.22 (mL/min/1.73m2) 08/31/19 06:30 Glucose 183 mg/dL (70-100) H 08/31/19 06:30 Hemoglobin A1c 8.9 % (4.5-6.2) H 08/30/19 09:00 Lactate 0.9 mmol/L (0.6-1.4) 08/30/19 09:00 Calcium 8.7 mg/dL (8.5-10.1) 08/31/19 06:30 Magnesium 1.8 mg/dL (1.8-2.4) 08/31/19 06:30 Total Bilirubin 1.0 mg/dL (0.2-1.0) 08/30/19 09:00 AST 13 U/L (15-37) L 08/30/19 09:00 ALT 28 U/L (16-63) 08/30/19 09:00 Alkaline Phosphatase 89 U/L (46-116) 08/30/19 09:00 C-Reactive Protein 3.67 mg/dL (0.0-0.3) H 08/31/19 06:30 Total Protein 7.4 g/dL (6.4-8.2) 08/30/19 09:00 Albumin 3.3 g/dL (3.4-5.0) L 08/30/19 09:00 Procalcitonin 0.2 ng/mL 08/31/19 06:30 Urine Color Yellow (Yellow) 08/30/19 22:05 Urine Clarity Clear (Clear) 08/30/19 22:05 Urine pH 7.0 (5-8) 08/30/19 22:05 Ur Specific [place] 1.010 (1.005-1.025) 08/30/19 22:05 Urine Protein 30 mg/dL (Negative) H 08/30/19 22:05 Urine Ketones Negative mg/dL (Negative) 08/30/19 22:05 Urine Blood Negative (Negative) 08/30/19 22:05 Urine Nitrite Negative (Negative) 08/30/19 22:05 Urine Bilirubin Negative (Negative) 08/30/19 22:05 Urine Urobilinogen 4.0 EU/dL (Up TO 0.2) H 08/30/19 22:05 Ur Leukocyte Esterase Negative (Negative) 08/30/19 22:05 Urine RBC Negative (0-2) 08/30/19 22:05 Urine WBC 0-2 HPF (0-5) 08/30/19 22:05 Ur Epithelial Cells Negative HPF (Negative) 08/30/19 22:05 Urine Crystals Negative HPF (Negative) 08/30/19 22:05 Urine Bacteria Negative HPF (Negative) 08/30/19 22:05 Urine Casts Negative LPF (Negative) 08/30/19 22:05 Urine Mucus Negative (Negative) 08/30/19 22:05 Urine Other Negative (Negative) 08/30/19 22:05 Ur Culture Indicated? No 08/30/19 22:05 Urine Glucose 250 mg/dL (Negative) H 08/30/19 22:05
[2019-08-31] MEDS: amLODIPine 10 MG TAB PO (19:35)
[2019-08-31] MEDS: Atorvastatin 20 MG TAB PO (19:36)
[2019-09-01] VITALS (7 sets, daily range): BP systolic 153–186; BP diastolic 70–88; PULSE 43–88; RESP 17–19; TEMP 36.3–37.4; O2SAT 95–98
[2019-09-01] MEDS: Normal Saline 1,000 ML 75 ML IV (00:20)
[2019-09-01] MEDS: Acetaminophen 325 MG TAB PO (00:24)
[2019-09-01] MEDS: PIPERACILLIN/TAZO 2.25 GM in Normal Saline 50 ML IVPB (04:03)
[2019-09-01] MEDS: Heparin 5,000 UNITS/ML VIAL 5000 UNITS SC ×3 (06:43→21:21)
[2019-09-01] MEDS: Aspirin E.C. 81 MG TABEC PO (08:08)
[2019-09-01] MEDS: Cyanocobalamin 500 MCG TAB 1000 MCG PO (08:09)
[2019-09-01] MEDS: Insulin Aspart 300 UNITS/3 ML PEN SC ×4 (08:09→21:27)
[2019-09-01] MEDS: Doxycycline Hyclate 100 MG CAP PO ×2 (10:57→21:21)
[2019-09-01 11:19] LABS: Abs Immature Grans 0.08 k/cumm (0.0-0.09); Absolute Basophil Count 0.06 k/cumm (0.0-0.2); Absolute Eosinophil Count 0.38 k/cumm (0.0-0.7); Absolute Lymphocyte Count 1.52 k/cumm (1.2-3.4); Absolute Monocyte Count 0.77 k/cumm (0.11-0.7); Absolute Neutrophil Count 3.78 k/cumm (1.2-6.7); Basophils % 0.9; Eosinophils % 5.8; HCT 40.2 % (40.0-50.0); HGB 13.8 g/dL (13.5-17.5); Immature Grans % 1.2; Lymphocytes % 23.1; Mean Corp. HGB Concentration 34.3 g/dL (32.0-36.0); Mean Corpuscular Hemoglobin 30.1 pg (27.0-33.0); Mean Corpuscular Volume 87.6 fL (80-95); Mean Platelet Volume 9.1 fL (8.0-11.0); Monocytes % 11.7; Neutrophils % 57.3; Platelet Count 243 x1000/uL (130-400); RBC 4.59 m/cumm (4.50-6.00); RBC Distribution Width 12.9 % (11.8-14.1); White Blood Cell Count 6.59 k/cumm (4.4-10.8)
--- NOTE | 2019-09-01 11:36 | PGE_ITS ---
Date of Service Date of service: 09/01/19 Time of Service: 11:36 Assessment and Plan Assessment and plan (1) Cellulitis of right ear: Start date: 09/01/19 Start time: 11:39 Status: Acute Assessment and plan: Improving. Receded to behind the ear. [place] now; swelling to external ear improved but present. Not tender with palpation. Blood cultures no GTD. Afebrile. Transitioned to augmentin and doxycycline, with probiotic. No leukocytosis at this time. Continue to monitor progress. Will requ salvatore a 7 day course of po antibiotics. (2) SANTOS (acute kidney injury): Start date: 09/01/19 Start time: 11:44 Status: Acute Assessment and plan: Appears to be Acute on Chronic; per records from PCP. Chronic with creatinine of 1.79 from 2013. Today BMP reveals 1.88. HR in 40's will hold off restarting ARB until HR increases above 55. Monitor BMP. (3) Diabetes: Start date: 09/01/19 Start time: 11:59 Status: Chronic Assessment and plan: Not a new diagnosis. Am glucose 214 will increase scale to resistant and monitor. (4) Hypertension: Start date: 09/01/19 Start time: 12:00 Status: Chronic Assessment and plan: Blood pressure has been elevated. Continue clonidine patch and amlodipine. Restart aldactone as SANTOS resolved and patient does have Chronic kidney disease. Holding lostartan at this time due to pulse. Monitor blood pressure. (5) Hyperlipidemia: Start date: 09/01/19 Start time: 12:02 Status: Chronic Assessment and plan: Continue statin therapy. (6) DVT prophylaxis: Start date: 09/01/19 Start time: 12:04 Status: Acute Assessment and plan: Subcutaneous heparin. (7) Discharge planning issues: Start date: 09/01/19 Start time: 12:04 Status: Acute Assessment and plan: He is a FULL CODE. This case was discussed with Dr. Vieira who is in agreement. Subjective Subjective Patient reports: no new complaints Interval history since last seen: Improving. Exam Narrative Exam Narrative: General: well appearing man, sitting up in bed, alert and oriented, pleasant and cooperative, answers questions appropriately. HEENT: right ear with swelling, erythema receded to pink around approx. 1-2 inches around ear onto scalp, Erythema receded from eye. EOMI, no pain with EOM. No vision changes. There is no active drainage. R ear no tenderness with palpation. Hearing intact. Left ear with normal external ear exam. Mucous membranes slightly dry. Neck: supple. Cardiovascular: heart has regular rate and rhythm, no murmur appreciated. Respiratory: respirations even and unlabored, lung sounds clear to auscultation bilaterally. GI: normoactive bowel sounds, abdomen soft, nontender on palpation, no masses appreciated. Extremities: No clubbing, cyanosis or edema. Moves all extremities with equal st rength. Objective Objective Clinical Data: Abnormal lab results 09/01/19 Range/Units 11:10 Absolute Monocytes 0.77 H (0.11-0.7) k/cumm Vital Signs Temperature 36.5 C 09/01/19 07:45 Temperature Source Tympanic 09/01/19 07:45 Pulse 43 L 09/01/19 07:45 Pulse Rhythm Regular 09/01/19 09:03 Respiratory Rate 17 09/01/19 07:45 Respiratory Effort Non-Labored 09/01/19 09:03 Respiratory Depth Normal 09/01/19 09:03 Respiratory Pattern Normal 09/01/19 09:03 Blood Pressure 177/88 H 09/01/19 07:45 Blood Pressure Position Sitting 08/30/19 08:37 Pulse Oximetry 97 09/01/19 07:45 Oxygen Delivery Method Room Air 09/01/19 07:45 Oxygen Flow Rate 0 09/01/19 07:45 Pain Level 0 09/01/19 07:45 Comment 09/01/19 07:45 Intake & Output 08/31/19 08/31/19 09/01/19 11:59 23:59 11:59 Intake Total 0 / 3410 1350 / 3410 420 / 420 Output Total 1150 / 1999 850 / 2000 2550 / 2550 Balance 910 / 1410 500 / 1410 -2130 / -2130 Weight 96.7 kg Intake: IV 0 / 3410 1350 / 3410 50 / 50 Oral 370 / 370 Output: Urine 115 / 1999 850 / 2000 2550 / 2550 Other: Urine Color Pale Light [place] Yellow Urine Appearance Clear Clear Clear Urine Odor None None None Voiding Methods Urinal Urinal Urinal Laboratory Results WBC 6.59 k/cumm (4.4-10.8) 09/01/19 11:10 RBC 4.59 m/cumm (4.50-6.00) 09/01/19 11:10 Hgb 13.8 g/dL (13.5-17.5) 09/01/19 11:10 Hct 40.2 % (40.0-50.0) 09/01/19 11:10 MCV 87.6 fL (80-95) 09/01/19 11:10 MCH 30.1 pg (27.0-33.0) 09/01/19 11:10 MCHC 34.3 g/dL (32.0-36.0) 09/01/19 11:10 RDW 12.9 % (11.8-14.1) 09/01/19 11:10 Plt Count 243 x1000/uL (130-400) 09/01/19 11:10 MPV 9.1 fL (8.0-11.0) 09/01/19 11:10 Immature Gran % 1.2 09/01/19 11:10 Neutrophils % 57.3 09/01/19 11:10 Lymphocytes % 23.1 09/01/19 11:10 Monocytes % 11.7 09/01/19 11:10 Eosinophils % 5.8 09/01/19 11:10 Basophils % 0.9 09/01/19 11:10 Absolute Neutrophils 3.78 k/cumm (1.2-6.7) 09/01/19 11:10 Absolute Lymphocytes 1.52 k/cumm (1.2-3.4) 09/01/19 11:10 Absolute Monocytes 0.77 k/cumm (0.11-0.7) H 09/01/19 11:10 Absolute Eosinophils 0.38 k/cumm (0.0-0.7) 09/01/19 11:10 Absolute Basophils 0.06 k/cumm (0.0-0.2) 09/01/19 11:10 ESR 25 mm/hr (1-20) H 08/31/19 06:30 Sodium 141 mmol/L (136-145) 08/31/19 06:30 Potassium 4.0 mmol/L (3.5-5.1) 08/31/19 06:30 Chloride 107 mmol/L (98-107) 08/31/19 06:30 Carbon Dioxide 24.7 mmol/L (21.0-32.0) 08/31/19 06:30 Anion Gap 9.3 mmol/L (3-11) 08/31/19 06:30 BUN 13 mg/dL (7-18) D 08/31/19 06:30 Creatinine 1.86 mg/dL (0.70-1.30) H 08/31/19 06:30 Estimated GFR/1.73 m2 35.22 (mL/min/1.73m2) 08/31/19 06:30 Glucose 183 mg/dL (70-100) H 08/31/19 06:30 Hemoglobin A1c 8.9 % (4.5-6.2) H 08/30/19 09:00 Lactate 0.9 mmol/L (0.6-1.4) 08/30/19 09:00 Calcium 8.7 mg/dL (8.5-10.1) 08/31/19 06:30 Magnesium 1.8 mg/dL (1.8-2.4) 08/31/19 06:30 Total Bilirubin 1.0 mg/dL (0.2-1.0) 08/30/19 09:00 AST 13 U/L (15-37) L 08/30/19 09:00 ALT 28 U/L (16-63) 08/30/19 09:00 Alkaline Phosphatase 89 U/L (46-116) 08/30/19 09:00 C-Reactive Protein 3.67 mg/dL (0.0-0.3) H 08/31/19 06:30 Total Protein 7.4 g/dL (6.4-8.2) 08/30/19 09:00 Albumin 3.3 g/dL (3.4-5.0) L 08/30/19 09:00 Procalcitonin 0.2 ng/mL 08/31/19 06:30 Urine Color Yellow (Yellow) 08/30/19 22:05 Urine Clarity Clear (Clear) 08/30/19 22:05 Urine pH 7.0 (5-8) 08/30/19 22:05 Ur Specific [place] 1.010 (1.005-1.025) 08/30/19 22:05 Urine Protein 30 mg/dL (Negative) H 08/30/19 22:05 Urine Ketones Negative mg/dL (Negative) 10/24/19 22:05 Urine Blood Negative (Negative) 08/30/19 22:05 Urine Nitrite Negative (Negative) 08/30/19 22:05 Urine Bilirubin Negative (Negative) 08/30/19 22:05 Urine Urobilinogen 4.0 EU/dL (Up TO 0.2) H 08/30/19 22:05 Ur Leukocyte Esterase Negative (Negative) 08/30/19 22:05 Urine RBC Negative (0-2) 08/30/19 22:05 Urine WBC 0-2 HPF (0-5) 08/30/19 22:05 Ur Epithelial Cells Negative HPF (Negative) 08/30/19 22:05 Urine Crystals Negative HPF (Negative) 08/30/19 22:05 Urine Bacteria Negative HPF (Negative) 08/30/19 22:05 Urine Casts Negative LPF (Negative) 08/30/19 22:05 Urine Mucus Negative (Negative) 08/30/19 22:05 Urine Other Negative (Negative) 08/30/19 22:05 Ur Culture Indicated? No 08/30/19 22:05 Urine Glucose 250 mg/dL (Negative) H 08/30/19 22:05
--- NOTE | 2019-09-01 11:48 | CMPROGNOTE_ITS ---
- If Service Date Differs Date of service: 09/01/19 Time of Service: 11:48 Care Management Progress Note S/O: Jimbo was sitting up in his bed when CM met with him. He stated that he feels better and is eager to go home. He reported that he was changed to oral antibiotics and that the plan is for him to return home tomorrow, which he is agreeable to. CM will continue to follow. A: Jimbo is a 79 year old male admitted to [facility] on 08/30/2019 with Cellulitis of the ear. P: Anticipate Jimbo will return home with no additional services when medically cleared. Anticipate his will transport him home via private vehicle when ready. CM will continue to follow.
[2019-09-01 11:53] LABS: Anion Gap 10.2 mmol/L (3-11); BUN 16 mg/dL (7-18); CO2 23.8 mmol/L (21.0-32.0); CREATININE 1.88 mg/dL (0.70-1.30); Chloride 106 mmol/L (98-107); Estimated GFR 34.79 (mL/min/1.73m2); Glucose 214 mg/dL (70-100); Magnesium 1.8 mg/dL (1.8-2.4); Potassium 3.9 mmol/L (3.5-5.1); Sodium 140 mmol/L (136-145)
[2019-09-01] MEDS: amLODIPine 10 MG TAB PO (19:49)
[2019-09-01] MEDS: Amoxicillin 875/Clav. 125 TAB PO (19:49)
[2019-09-01] MEDS: Atorvastatin 20 MG TAB PO (19:49)
[2019-09-01] MEDS: Losartan 25 MG TAB PO (23:29)
[2019-09-02 01:30] VITALS: BP 182/87; PULSE 48; RESP 18; TEMP 37.1; O2SAT 97
[2019-09-02 06:40] VITALS: BP 199/98; PULSE 58; RESP 18; TEMP 37.1; O2SAT 100
[2019-09-02] MEDS: Heparin 5,000 UNITS/ML VIAL 5000 UNITS SC (06:42)
[2019-09-02 07:05] LABS: Abs Immature Grans 0.15 k/cumm (0.0-0.09); Absolute Basophil Count 0.08 k/cumm (0.0-0.2); Absolute Eosinophil Count 0.46 k/cumm (0.0-0.7); Absolute Lymphocyte Count 2.18 k/cumm (1.2-3.4); Absolute Monocyte Count 0.94 k/cumm (0.11-0.7); Absolute Neutrophil Count 4.93 k/cumm (1.2-6.7); Basophils % 0.9; Eosinophils % 5.3; HCT 40.4 % (40.0-50.0); Immature Grans % 1.7; Lymphocytes % 24.9; Mean Corp. HGB Concentration 34.7 g/dL (32.0-36.0); Mean Corpuscular Hemoglobin 30.1 pg (27.0-33.0); Mean Corpuscular Volume 86.9 fL (80-95); Mean Platelet Volume 9.3 fL (8.0-11.0); Monocytes % 10.8; Neutrophils % 56.4; Platelet Count 270 x1000/uL (130-400); RBC 4.65 m/cumm (4.50-6.00); RBC Distribution Width 12.7 % (11.8-14.1); White Blood Cell Count 8.74 k/cumm (4.4-10.8)
[2019-09-02 07:20] LABS: Anion Gap 9.5 mmol/L (3-11); BUN 17 mg/dL (7-18); C-Reactive Protein 1.18 mg/dL (0.0-0.3); CO2 24.5 mmol/L (21.0-32.0); Calcium 9.3 mg/dL (8.5-10.1); Chloride 106 mmol/L (98-107); Estimated GFR 39.07 (mL/min/1.73m2); Glucose 186 mg/dL (70-100); Magnesium 1.8 mg/dL (1.8-2.4); Potassium 4.1 mmol/L (3.5-5.1); Sodium 140 mmol/L (136-145)
[2019-09-02] MEDS: Losartan 50 MG TAB 100 MG PO (08:04)
[2019-09-02] MEDS: Amoxicillin 875/Clav. 125 TAB PO (08:04)
[2019-09-02] MEDS: Insulin Aspart 300 UNITS/3 ML PEN SC (08:04)
[2019-09-02] MEDS: Cyanocobalamin 500 MCG TAB 1000 MCG PO (08:05)
[2019-09-02] MEDS: Aspirin E.C. 81 MG TABEC PO (08:06)
[2019-09-02 09:29] VITALS: BP 172/80
--- NOTE | 2019-09-02 10:01 | W.PM.DS.N ---
Date of service: 09/02/19 Time of Service: 10:01 DS: Diagnosis Discharge Diagnosis (1) Cellulitis of right ear: Start date: 09/02/19 Start time: 10:01 Status: Acute Asessment and Plan: Transitioned to augmentin and doxy. Cellulitis improving, [place] behind the ER but receded to top of external ear. [facility] May need to continue longer course of antibiotic therapy if still pink or swelling in 5 days. (2) SANTOS (acute kidney injury): Start date: 09/02/19 Start time: 10:04 Status: Acute Asessment and Plan: Resolved. Restart losartan (3) Diabetes: Status: Chronic (4) Hypertension: Start date: 09/02/19 Start time: 10:04 Status: Chronic Asessment and Plan: Elevated, managed by [facility]. Follow up for tighter control. 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 for cellulitis of right ear; after failing outpatient trial of augmentin. He was admitted on 08/30/2019 for IV antibiotic and management. Upon admission he was hypertensive, with slight leukocytosis, CRP was 7.02 with severe pain, swelling and errythema extending around external ear across pinna. Creatinine was elevated and it was unknown if this was a new finding. Spirlactone and losartan were held in setting of SANTOS, IVF infused and BMP monitored. During his hospital course [facility], obtained revealing patient does have chronic kidney disease, at baseline around 1.70. BP was elevated currently he is being controlled with clonidine patch, spirlactone, losartan and amlodipine. He will need follow up with [facility] for tighter control of BP. His symptoms started to resolve with in 24 hours with receding erthyema and swelling. He was transitioned to PO augmentin and Doxy and monitored for 24 hours. Today patient has a small area of pink behind external ear, swelling is minimized to top of ear with no pain on palpation. CRP is 1.18. Afebrile with no leukocytosis. Blood cultures no growth after 72 hours. He will need to follow [facility] with the [facility] days. He is going home on a 7 day course of augmentin and doxy. If his cellulitis is not entirely cleared up recommend an additional dose of augmentin and doxy with follow up. He denies CP, SOB, N/V/D. Home Meds and New Rx's Prescriptions: New doxycycline hyclate 100 mg Capsule 100 mg PO Q12H Qty: 12 RF: 0 amoxicillin-pot clavulanate 875-125 mg Tablet 1 tab PO BID Qty: 12 RF: 0 Bio-K plus 50 billion cell Capsule,Delayed Release(Dr/Ec) 1 cap PO DAILY Qty: 30 RF: 0 Continued atorvastatin 20 mg Tablet 20 mg PO DAILY RF: 0 cyanocobalamin (vitamin B-12) 1,000 mcg Tablet 1,000 mcg PO DAILY RF: 0 spironolactone 25 mg Tablet 12.5 mg PO DAILY RF: 0 amlodipine 10 mg Tablet 10 mg PO DAILY RF: 0 clonidine 0.3 mg/24 hr Patch Weekly 1 patch TRANSDERMAL QWEEK RF: 0 ergocalciferol (vitamin D2) 50,000 unit Capsule 50,000 unit PO QWEEK RF: 0 losartan 100 mg Tablet 100 mg PO DAILY RF: 0 aspirin [Aspirin Low Dose] 81 mg Tablet,Delayed Release (Dr/Ec) 81 mg PO DAILY RF: 0 amoxicillin-pot clavulanate [Augmentin] 875-125 mg tablet 1 tab PO BID Qty: 14 RF: 0 Discharge Instructions Instructions: Cellulitis (GEN), Heart Healthy Diet (GEN), Antibiotic Resistant Bacteria (GEN), Low Sodium Diet (DC), Hypertensive Crisis (DC) Additional Instructions: [facility]. Take all of your antibiotic. Take a probiotic daily. Eat a yogurt a day Follow [facility] with the [facility] regarding your Blood pressure Seek Medical treatment if you have Chest pain, Shortness of breath, Nausea, Vomiting. Stand Alone Forms: Nursing Discharge Form Referrals: Grazyna Colón [Primary Care Provider] - Activity:: Activity as Tolerated Equipment/Supplies:: No Equipment Needed Diet:: Low Sodium Discharge Orders Discharge Orders: Discharge Order (Routine); Ordered 09/02/19 Ordered By: Gracy Bonilla DS: Summary Status at Discharge Functional status at discharge: independent ambulation Overall status at discharge: patient is back to baseline Mental Status: mental status grossly normal Speech and Movement: speech and movement normal Mood: congruent mood Affect: normal affect Exam Narrative Exam Narrative: General: well appearing man, sitting up in bed, alert and oriented, pleasant and cooperative, answers questions appropriately. HEENT: right ear with slight swelling localized to upper ear. EOMI, no pain with EOM. No vision changes. There is no active drainage. R ear no tenderness with palpation. Hearing intact. Left ear with normal external ear exam. Mucous membranes slightly dry. Neck: supple. Cardiovascular: heart has regular rate and rhythm, no murmur appreciated. Respiratory: respirations even and unlabored, lung sounds clear to auscultation bilaterally. GI: normoactive bowel sounds, abdomen soft, nontender on palpation, no masses appreciated. Extremities: No clubbing, cyanosis or edema. Moves all extremities with equal strength. Psych Mental Status: mental status grossly normal Speech and Movement: speech and movement normal Mood: congruent mood Affect: normal affect DS: Data Vitals/I&O Vitals and I&O: Vital Signs Temperature 37.1 C 09/02/19 06:40 Temperature Source Skin 09/02/19 06:40 Pulse 58 L 09/02/19 06:40 Pulse Rhythm Regular 09/02/19 09:37 Respiratory Rate 18 09/02/19 06:40 Respiratory Effort Non-Labored 09/02/19 09:37 Respiratory Depth Normal 09/02/19 09:37 Respiratory Pattern Normal 09/02/19 09:37 Blood Pressure 172/80 H 09/02/19 09:29 Blood Pressure Position Sitting 08/30/19 08:37 Pulse Oximetry 100 09/02/19 06:40 Oxygen Delivery Method Room Air 09/02/19 06:40 Oxygen Flow Rate 0 09/02/19 06:40 Pain Level 0 09/01/19 11:47 Comment 09/02/19 06:40 Intake & Output 09/01/19 09/01/19 09/02/19 11:59 23:59 11:59 Intake Total 1420 / 1540 120 / 1540 Output Total 2750 / 2750 Balance -1330 / -1210 120 / -1210 Weight 96.7 kg 95 kg Intake: IV 1050 / 1050 Oral 370 / 490 120 / 490 Output: Urine 2750 / 2750 Other: Urine Color Yellow Urine Appearance Clear Clear Clear Urine Odor None Comment pt voiding independently. reports no symptoms. Voiding Methods Urinal Toilet Data Completed and Pending Completed studies during hospitalization [Text1]: Exam(s) a CT:CT sinus w EXAM: CT SINUS W CLINICAL HISTORY: Concern for right mastoiditis. TECHNIQUE: A with contrast-enhanced sinus CT was carried out with intravenous administration of 70 cc of Omnipaque 350. COMPARISON: No exams were available for comparison FINDINGS: The paranasal sinuses are unremarkable save for a small retention cyst involving the sphenoid. There is no evidence of a mastoid effusion. As visualized the middle ear cavity and exterior auditory canals are intact. IMPRESSION: Aside from a very small sphenoid retention cyst, the sinuses are normal. There is nothing to suggest mastoiditis. Labs on day of discharge: Labs from last 24 hours 09/02/19 09/02/19 09/01/19 06:44 06:44 11:10 WBC 8.74 D 6.59 RBC 4.65 4.59 Hgb 14.0 13.8 Hct 40.4 40.2 MCV 86.9 87.6 MCH 30.1 30.1 MCHC 34.7 34.3 RDW 12.7 12.9 Plt Count 270 243 MPV 9.3 9.1 Immature Gran % 1.7 1.2 Neutrophils % 56.4 57.3 Lymphocytes % 24.9 23.1 Monocytes % 10.8 11.7 Eosinophils % 5.3 5.8 Basophils % 0.9 0.9 Absolute Neutrophils 4.93 3.78 Absolute Lymphocytes 2.18 1.52 Absolute Monocytes 0.94 H 0.77 H Absolute Eosinophils 0.46 0.38 Absolute Basophils 0.08 0.06 Sodium 140 Potassium 4.1 Chloride 106 Carbon Dioxide 24.5 Anion Gap 9.5 BUN 17 Creatinine 1.70 H Estimated GFR/1.73 m2 39.07 Glucose 186 H Calcium 9.3 Magnesium 1.8 C-Reactive Protein 1.18 H 09/01/19 11:10 WBC RBC Hgb Hct MCV MCH MCHC RDW Plt Count MPV Immature Gran % Neutrophils % Lymphocytes % Monocytes % Eosinophils % Basophils % Absolute Neutrophils Absolute Lymphocytes Absolute Monocytes Absolute Eosinophils Absolute Basophils Sodium 140 Potassium 3.9 Chloride 106 Carbon Dioxide 23.8 Anion Gap 10.2 BUN 16 Creatinine 1.88 H Estimated GFR/1.73 m2 34.79 Glucose 214 H Calcium 9.0 Magnesium 1.8 C-Reactive Protein Preliminary micro results at discharge 08/30/19 11:41 Skin Culture - Preliminary Ear - Right Normal Poly [facility] Medical History Chronic kidney disease (Acute) Diabetes (Chronic) Hyperlipidemia (Chronic) Hypertension (Chronic) Social History Smoking/Tobacco Use Status: Former Tobacco Use Alcohol Intake: never Drug use: Never Substance use type: does not use Do you feel safe at home: Yes Do you feel safe in your relationship?: Yes
[2019-09-02] MEDS: Doxycycline Hyclate 100 MG CAP PO (10:15)
--- NOTE | 2019-09-02 15:49 | PDOC.CMDIS ---
- If Service Date Differs Date of service: 09/02/19 Time of Service: 15:49 LACE Index Scoring Tool - Questions: Length of Stay (in days): 4 - 6 Acuity (Admit via E.D.?): Yes Comorbidities: Diabetes w/o Complication E.D. Visits: 2 - Answers: Total Score: 10 Risk of Readmission: High Risk Care Management Discharge Reason for Hospitalization: Facial and auricular cellulitis, malignant otitis consumer marketing manager Discharge Plan: Jimbo will return home with no additional services at this time. He will follow up with his PCP, as recommended. His will drive him home via private vehicle. Patient/Family Education Needs: Review discharge instructions regarding activity levels and medications, discussion of self care needs including Ask Me Three
== END 2019-09-02 11:25 | disposition home or self-care (01) | DRG 155 ==
LOC: ER 12:17 → MS 12:29
PROVIDERS: Nurse Practitioner Family; Admitting Provider Internal Medicine; Emergency Provider Nurse Practitioner Family; PCP Student in an Organized Health Care Education/Training Program; Visit Provider Internal Medicine
DX: H60.11 Cellulitis of right external ear (principal); N17.9 Acute kidney failure, unspecified; E11.22 Type 2 diabetes mellitus with diabetic chronic kidney disease; I10 Essential (primary) hypertension; E78.5 Hyperlipidemia, unspecified; N18.9 Chronic kidney disease, unspecified; Z23 Encounter for immunization
CPT/HCPCS: 36415; 80048; 80053; 84145; 85652; 96365; 96366; 99222; 99232; 99233; 99239; 99285; 81003; 81015; 83036; 83605; 83735; 85025; 86140; 87070; 99284; J0295; J1644; J2543

== ENCOUNTER 2022-11-10 14:23 | Emergency (ER) | payer OTHER, SELFPAY ==
[2022-11-10] VITALS (25 sets, daily range): BP systolic 156–195; BP diastolic 75–110; PULSE 68–108; RESP 12–21; TEMP 36.5; O2SAT 92–98
--- NOTE | 2022-11-10 14:45 | DI.CT_ITS ---
Exam(s) CT NECK W EXAM: CT NECK W INDICATION: neck swelling infection?. COMPARISON: CT CT SINUS W from 08/29/2019 TECHNIQUE: FINDINGS: NASOPHARYNX: Unremarkable OROPHARYNX: No evidence of tonsillar mass nor abscess. However, there is an abnormal enhancing soft tissue thickening in the left side of the base of the tongue and extending caudally into left vallecu lar and piriform sinus, concerning for malignancy.. This does cause some narrowing of the oropharyng eal airway at this level. No evidence of tonsillar mass. Uvula unremarkable. HYPOPHARYNX: Asymmetric left side density extending caudally for distance of 4.5 cm. This approximat justin 2 cm wide. VOCAL CORDS: Unremarkable. No masses evident. Subglottic airway appears unremarkable. THYROID GLAND: Left lobe unremarkable. There nodules in the right thyroid lobe noted. SALIVARY GLANDS: Unremarkable. No significant findings in the parotid and submandibular glands. LYMPH NODES: There are abnormally enlarged lymph nodes in both sides of the neck, largest measuring 2 .5 x 2.5 cm some exhibiting hypodense centers, particularly those intimately associated with the ster nocleidomastoid muscle on the left side of the. Enlarged lymph nodes are noted in the jugular chains . OTHER: VISUALIZED LUNG APICES: Partially visualized upper lobes are unremarkable. Also no pleural effusions . IMPRESSION: 1. Prominent area of abnormal soft tissue thickening extending from the left side of the base the to ngue down into the hypopharynx, extending craniocaudally for distance of 4-5 cm. Suspicious for citlaly gnancy. 2. There are multiple bilateral enlarged lymph nodes on both sides the neck, some which are centrall y hypodense. These are probably metastatic nodes.. First read by [facility] RADIATION DOSE DELIVERED: 497.39mGy.cm Total DLP 497.39mGy.cm Total DLP DATA REPOSITORY: All CT scans at this facility are submitted to the National Radiology Data Registry (NRDR) Dose Index Registry (DIR) with the [employer] ([employer]). RADIATION OPTIMIZATION: All CT scans at this facility use at least one of these dose optimization te chniques: automated exposure control; mA and/or kV adjustment per patient size (includes targeted exa ms where dose is matched to clinical indication); or iterative reconstruction.
--- NOTE | 2022-11-10 14:55 | ED.GENADUL_ITS ---
Discharge Plan Disposition Patient Disposition: Home Condition: Stable Discharge Details Clinical Impression: Mass of oropharynx Primary Care Provider: Grazyna Colón ED Provider: Luisa Myrick Home Meds and New Rx's Prescriptions: Continued atorvastatin 20 mg Tablet 20 mg PO DAILY spironolactone 25 mg Tablet 25 mg PO DAILY Rx Instructions: Pt takes at night time amlodipine 10 mg Tablet 10 mg PO DAILY clonidine 0.3 mg/24 hr Patch Weekly 1 patch TRANSDERMAL QWEEK aspirin [Christopher Low Dose Aspirin] 81 mg Tablet,Delayed Release (Dr/Ec) 81 mg PO DAILY calcitriol 0.25 mcg Capsule 0.25 mcg PO QMWF Rx Instructions: Mondays/Wednesdays & Fridays clonidine 0.1 mg/24 hr Patch Weekly 0.1 mg transdermal QWEEK candesartan 32 mg Tablet 32 mg PO QHS docusate sodium 100 mg Capsule 200 mg PO DAILY cholecalciferol (vitamin D3) 25 mcg (1,000 unit) Capsule 25 mcg PO DAILY carboxymethylcellulose sodium 0.5 % Dropperette 1 drp ophthalmic (eye) QID doxepin 3 mg Tablet 3 mg PO QHS hydralazine 10 mg Tablet 10 mg PO TID psyllium 500 mg Capsule 1 g PO DAILY Rx Instructions: Drink 8oz of liquid with each dose ramelteon 8 mg Tablet 8 mg PO QHS Discharge Instructions Additional Instructions: [facility] will call you tomorrow, please have your phone available as you will need to be seen either tomorrow or tuesday regular fluids and smooth foods only please return immediately with shortness of breath, progressively worsening difficulty swallowing, or with any new or worsening complaints call your [facility] doctor tomorrow Referrals: Grazyna Colón [Primary Care Provider] - Discharge Data Discharge Date/Time-TO BE ENTERED AT DEPARTURE: 11/10/22 20:44 Medical Decision Making <Daniel Wyatt NP - Last Filed: 11/17/22 08:34> Patient presenting to the emergency department for chief complaint of sore throat and neck swelling. Patient reports over the past 2 days he had noted a sore throat and significant swelling of his neck. He does state and endorses some muffled voice and pain with swallowing. Patient does have airway intact, no stridorous sounds, clear lung sounds normal cardiac exam. Patient does have significant soft tissue swelling and lymphadenopathy to the anterior neck. Tonsils and posterior pharynx are erythematous but no significant edema is noted. No signs of of Ludewig's angina is noted but I am concerned for potential deep space infection of neck. We will plan on checking labs, strep swab, COVID swab, blood cultures and CT imaging of the neck. Pending results we will give patient Decadron and IV Zosyn. <VALERIE Marvin - Last Filed: 11/11/22 09:21> Patient presenting to the emergency department for chief complaint of sore throat and neck swelling. Patient reports over the past 2 days he had noted a sore throat and significant swelling of his neck. He does state and endorses some muffled voice and pain with swallowing. Patient does have airway intact, no stridorous sounds, clear lung sounds normal cardiac exam. Patient does have significant soft tissue swelling and lymphadenopathy to the anterior neck. Tonsils and posterior pharynx are erythematous but no significant edema is noted. No signs of of Ludewig's angina is noted but I am concerned for potential deep space infection of neck. We will plan on checking labs, strep swab, COVID swab, blood cultures and CT imaging of the neck. Pending results we will give patient Decadron and IV Zosyn. Care is accepted and transition from [facility] nurse practitioner at [address] scan of patient's neck He has impressive notable swelling to his anterior neck but is actually supine t and maintaining secretions, he is able to tolerate liquid and food at home His blood pressure has been mildly elevated His creatinine appears to be baseline for him with level of 1.9, I think the benefit of IV contrast outweighs the risk and will give fluid hydration in the emergency department CT result returns from virtual radiology interpretation with bilateral cervical lymphadenopathy, which is concerning for metastatic disease with concern for primary source of malignancy possibly involving tongue and oropharynx/hypopharynx Results were reviewed with ENT, Dr.Galati Hearn [facility], while his CT is concerning, patient has preference to be discharged home as [facility] is unable to accept him in transfer ENT would like to see patient on an urgent basis and is creating availability for tomorrow for assessment in the clinic to begin the further evaluation for possible malignancy Of note, patient is a [facility] patient, however given the urgent basis as condition, starting assessment at [facility] is quite reasonable at this time We discussed risk benefit of discharge home and patient prefers discharge versus transfer to another facility at this time, he is maintaining airway and secretions, he is exhibiting stable vital signs and shows no evidence of shortness of breath or respiratory decompensation I do not feel like he needs an emergent airway based on his 5-hour assessment in the emergency department, all discussions were performed in presence of patient and his and they will observe closely and return immediately should his condition change in any way Folder alert, oriented, of decisional capacity, they are aware of the urgency and complexity of patient's current diagnosis Of note, prior to receiving this patient he received Decadron and Unasyn and ENT was made aware and this is reasonable at this time ENT prefers that we do not administer any additional antibiotics or steroids at this time Patient is discharged home with patent airway and stable vital signs, he will need very close outpatient follow-up which has been established for tomorrow at [facility], they will call patient in the morning Return precautions reviewed in detail HPI <Daniel Wyatt NP - Last Filed: 11/17/22 08:34> General Mode of arrival: ambulatory . Date/Time Provider Initiated Documentation: 11/10/22 14:40 . Limitations to Documentation: no limitations . Information obtained by: patient and RN notes reviewed . History of Present Illness 82 year old M presents to the emergency department with the chief complaint of Neck swelling, described as moderate, severe and similar to prior episodes, with intensity rated at 5. Quality is described as aching, and is localized to the neck. Patient reports no radiation. Patient started experiencing this day(s) and it has been constant. No relieving factors improve symptom(s), No exacerbating factors reported . Patient notes no other symptoms.. Patient did receive the following treatments prior to arrival, none Related Data Home Medications Medication Instructions Recorded Confirmed amlodipine 10 mg tablet 10 mg PO DAILY 08/29/19 11/11/22 aspirin 81 mg tablet,delayed 81 mg PO DAILY 08/29/19 11/11/22 release (Christopher Low Dose Aspirin) atorvastatin 20 mg tablet 20 mg PO DAILY 08/29/19 11/11/22 clonidine 0.3 mg/24 hr weekly 1 patch transdermal QWEEK 08/29/19 11/11/22 transdermal patch spironolactone 25 mg tablet 25 mg PO DAILY 08/29/19 11/11/22 calcitriol 0.25 mcg capsule 0.25 mcg PO QMWF 11/10/22 11/11/22 candesartan 32 mg tablet 32 mg PO QHS 11/10/22 11/11/22 carboxymethylcellulose sodium 0.5 1 drp ophthalmic (eye) QID 11/10/22 11/11/22 % eye drops in a dropperette cholecalciferol (vitamin D3) 25 25 mcg PO DAILY 11/10/22 11/11/22 mcg (1,000 unit) capsule clonidine 0.1 mg/24 hr weekly 0.1 mg transdermal QWEEK 11/10/22 11/11/22 transdermal patch docusate sodium 100 mg capsule 200 mg PO DAILY 11/10/22 11/11/22 doxepin 3 mg tablet 3 mg PO QHS 11/10/22 11/11/22 hydralazine 10 mg tablet 10 mg PO TID 11/10/22 11/11/22 psyllium 500 mg capsule 1 g PO DAILY 11/10/22 11/11/22 ramelteon 8 mg tablet 8 mg PO QHS 11/10/22 11/11/22 Allergies Allergy/AdvReac Type Severity Reaction Status Date / Time No Known Allergies Allergy Unverified 11/11/22 15:53 General Stated Complaint: Cellulitis SHABANA: 3 Review of Systems <Daniel Wyatt NP - Last Filed: 11/17/22 08:34> Constitutional Constitutional: Denies chills, Denies fever(s) and Denies headache(s) Eyes Eyes: Reports system reviewed and no additional complaints, except as documented ENT Ears, Nose, Mouth, and Throat: Reports as per HPI, Denies headache(s), Denies nasal congestion, Reports neck pain, Reports odynophagia, Reports sore throat, Reports throat swelling and Denies tongue swelling Cardiovascular Cardiovascular: Denies chest pain and Denies dyspnea Respiratory Respiratory: Denies cough, Denies dyspnea and Denies stridor Gastrointestinal Gastrointestinal: Denies abdominal pain, Denies nausea, Reports odynophagia and Denies vomiting Musculoskeletal Musculoskeletal: Reports neck pain Integumentary/Breasts Skin/Breast: Denies rash Neurologic Neurologic: Denies headache(s) Psychiatric Psychiatric: Denies anxiety Allergic/Immunologic Allergic/Immunologic: Reports throat swelling and Denies tongue swelling PFSH <Daniel Wyatt NP - Last Filed: 11/17/22 08:34> All Active Problems (Updated 11/11/22 @ 18:35 by Kirk Argueta MD) Mass of oropharynx (Acute) Acute cerebrovascular accident (CVA) (Acute) 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) Discharge planning issues (Acute) DVT prophylaxis (Acute) SANTOS (acute kidney injury) (Acute) Cellulitis of right ear (Acute) Diabetes (Chronic) Hyperlipidemia (Chronic) Hypertension (Chronic) Medical History (Updated 11/11/22 @ 18:35 by Kirk Argueta MD) Chronic kidney disease Social History Smoking/Tobacco Use Status: Current every day Tobacco Type: smokeless tobacco Smoking risk assessment performed?: Yes Alcohol Intake: never Drug use: Never Substance use type: does not use Do you feel safe at home: Yes Do you feel safe in your relationship?: Yes Exam <KAITLYN Coronel Last Filed: 11/17/22 08:34> Const General: cooperative, comfortable and no acute distress Orientation: alert and awake HENMT Head: normal to inspection, normocephalic and atraumatic Ears: hearing grossly normal bilaterally and TM's normal bilaterally General nose exam: external nose normal Face and sinus: no erythema Mouth: oral mucosae normal, lip normal, tongue normal, no drooling, muffled voice and no trismus Throat: uvula midline, abnormal tonsil bilaterally erythema, posterior oropharynx abnormal erythema and no uvular edema Neck Neck: full ROM, no meningeal signs, trachea midline, anterior neck swelling, lymphadenopathy bilateral anterior cervical hard, warm and tender and tender Resp Effort & Inspection: normal respiratory effort and able to speak in complete sentences Auscultation: clear to auscultation bilaterally Cardio Rate: regular rate Rhythm: regular rhythm Heart Sounds: S1 normal, S2 normal, normal S1 and S2, no click, no gallops, no murmurs and no rubs Skin General skin exam: no rashes or lesions noted and dry skin (warm) Neuro General: patient alert, patient awake, patient oriented x3, gait normal and moves all extremities Cognition: normal cognition Speech: speech normal Course <Daniel Wyatt NP - Last Filed: 11/17/22 08:34> Vital Signs Vital signs: Vital Signs Temperature 36.5 C 11/10/22 14:26 Pulse 94 H 11/10/22 14:26 Respiratory Rate 16 11/10/22 14:26 Blood Pressure 183/77 H 11/10/22 14:26 Pulse Oximetry 98 11/10/22 14:26 Temperature 36.5 C 11/10/22 14:26 Temperature Source Skin 11/10/22 14:26 Pulse 94 H 11/10/22 14:26 Respiratory Rate 16 11/10/22 14:26 Respiratory Effort 11/10/22 14:30 Blood Pressure 183/77 H 11/10/22 14:26 Blood Pressure Position Supine 11/10/22 14:26 Pulse Oximetry 98 11/10/22 14:26 Oxygen Delivery Method Room Air 11/10/22 14:26 Oxygen Flow Rate 0 11/10/22 14:26 Pain Level 5 11/10/22 14:26 Lab/Test Results Lab/Test Results: 11/10/22 14:46 Blood Blood Culture - Pending 11/10/22 14:46 Blood Blood Culture - Pending Sign Out <Daniel Wyatt NP - Last Filed: 11/17/22 08:34> Sign Out Data: Sign Out Comment: Patient pending review of labs and CT imaging of neck for concern of significant infection. Last updated by Daniel Wyatt NP at 11/10/22 15:33
[2022-11-10 15:22] LABS: Source Nasal/Nares
[2022-11-10 15:39] LABS: ALT 13 U/L (16-63); AST 18 U/L (15-37); Albumin 3.8 g/dL (3.4-5.0); Alkaline Phosphatase 137 U/L (46-116); Anion Gap 10.9 mmol/L (3-11); BUN 20 mg/dL (7-18); Bilirubin, Total 0.6 mg/dL (0.2-1.0); CO2 23.1 mmol/L (21.0-32.0); CREATININE 1.9 mg/dL (0.70-1.30); Calcium 9.9 mg/dL (8.5-10.1); Chloride 103 mmol/L (98-107); Estimated GFR 34.79 (mL/min/1.73m2); Glucose 125 mg/dL (74-106); Potassium 4.1 mmol/L (3.5-5.1); Sodium 137 mmol/L (136-145); Total Protein 8.6 g/dL (6.4-8.2)
[2022-11-10 15:47] LABS: Abs Immature Grans 0.04 10^3/uL (0.0-0.06); Absolute Basophil Count 0.06 10^3/uL (0.0-0.2); Absolute Eosinophil Count 0.18 10^3/uL (0.0-0.7); Absolute Lymphocyte Count 1.37 10^3/uL (1.2-3.4); Absolute Monocyte Count 0.97 10^3/uL (0.1-0.8); Basophils % 0.5; Eosinophils % 1.6; HCT 44.1 % (40.0-50.0); HGB 14.9 g/dL (13.5-17.5); Immature Grans % 0.3; Lymphocytes % 11.9; MCH 29.3 pg (27.0-33.0); MCHC 33.8 % (32.0-36.0); MCV 87 fL (80-95); MPV 8.8 fL (8.0-11.0); Monocytes % 8.4; Neutrophils % 77.3; Platelet Count 295 10^3/uL (130-400); RBC 5.08 10^6/uL (4.36-5.78); RDW 12.2 % (11.8-14.1); WBC 11.49 10^3/uL (4.4-10.8)
[2022-11-10 15:56] LABS: COVID-19 PCR Negative (Negative)
[2022-11-10 15:58] LABS: Absolute Neutrophil Count 8.88 10^3/uL (1.2-6.7)
[2022-11-10] MEDS: Dexamethasone 10 MG/ML VIAL PO (16:03)
[2022-11-10] MEDS: PIPERACILLIN/TAZO 3.375 GM in Normal Saline 50 ML IVPB (16:04)
[2022-11-10] MEDS: Normal Saline Flush 10 ML SYR IVP ×2 (16:05→18:20)
[2022-11-10 16:15] LABS: Procalcitonin < 0.1 ng/mL
[2022-11-10] MEDS: Normal Saline 500 ML IV (16:27)
[2022-11-10] MEDS: Omnipaque 350 MG/ML 100 ML BTL IJ (18:18)
[2022-11-10] MEDS: Normal Saline - Diluent 50 ML VIAL IJ (18:18)
--- NOTE | 2022-11-10 18:58 | DI.VRAD_ITS ---
PROCEDURE INFORMATION: Exam: CT Neck With Contrast Exam date and time: 11/10/2022 5:34 PM Age: 82 years old Clinical indication: Neck swelling, infection? TECHNIQUE: Imaging protocol: Computed tomography of the neck with contrast. Radiation optimization: All CT scans at this facility use at least one of these dose optimization techniques: automated exposure control; mA and/or kV adjustment per patient size (includes targeted exams where dose is matched to clinical indication); or iterative reconstruction. Contrast material: OMNIPAQUE 350; Contrast volume: 100 ml; Contrast route: INTRAVENOUS (IV); COMPARISON: CT SINUS W 08/29/2019 12:59 PM FINDINGS: Pharynx: There is enhancing soft tissue thickening noted in the left base of tongue extending into the left vallecula and piriform sinus, concerning for malignancy in this region. This region is difficult to precisely measure due to irregular contour. There is narrowing of the oropharyngeal airway secondary to the left pharyngeal/hypopharyngeal soft tissue thickening. Larynx: Epiglottis is not well evaluated due to adjacent thickening but appears in normal alignment. The vocal cords appear grossly intact. Prevertebral and retropharyngeal spaces: Unremarkable. Salivary glands: Glands are normal in size. Thyroid: Small hypodense nodules noted in the thyroid gland measuring up to 7 mm on the right. Lymph nodes: There are multiple enlarged lymph nodes noted throughout the bilateral neck, some of which are cystic and measure up to 3.7 x 1.9 cm on the right (image 37, series 5). Trachea: Visualized trachea is unremarkable. Lungs: The lung apices are unremarkable. Bones/joints: No acute fracture. There are multilevel degenerative changes most prominent at C5-C6 and C6-C7 with bilateral neural foraminal narrowing. No significant spinal canal stenosis. Soft tissues: Mild soft tissue stranding noted throughout the neck with trace free fluid on the left. IMPRESSION: 1. Multiple enlarged bilateral cervical lymph nodes, some of which are cystic in appearance, concerning for metastatic disease. Prominent soft tissue thickening in the left base of tongue, involving the left oropharynx and hypopharynx, concerning for primary malignancy. 2. No definite evidence of pharyngeal abscess. THIS REPORT CONTAINS FINDINGS THAT MAY BE CRITICAL TO PATIENT CARE. The findings were verbally communicated via telephone conference with Dr. King, at 6:52 PM EST on 11/10/2022. The findings were acknowledged and understood. Dictated and Authenticated by: Lisa Abraham MD. Ordering:BERNIE Sanchez MD
== END 2022-11-10 20:44 | disposition home or self-care (01) ==
PROVIDERS: Nurse Practitioner Family; Emergency Provider Physician Assistant; PCP Student in an Organized Health Care Education/Training Program
DX: J39.2 Other diseases of pharynx (principal); R59.0 Localized enlarged lymph nodes; M79.89 Other specified soft tissue disorders; R03.0 Elevated blood-pressure reading, without diagnosis of hypertension; N18.9 Chronic kidney disease, unspecified; Z79.82 Long term (current) use of aspirin; Z20.822 Contact with and (suspected) exposure to COVID-19
CPT/HCPCS: 36415; 70491; 80053; 84145; 87040; 87635; 87880; 96361; 96365; 99285; 85025; 87081; 99284; J1100; J2543; J3490

== ENCOUNTER 2022-11-11 15:08 | Emergency (ER) | payer OTHER, SELFPAY ==
[2022-11-11] VITALS (9 sets, daily range): BP systolic 146–181; BP diastolic 78–106; PULSE 81–100; RESP 15–24; TEMP 36; O2SAT 92–96
--- NOTE | 2022-11-11 15:00 | DI.CT_ITS ---
Exam(s) CT BRAIN NECK CTA EXAM: CT BRAIN NECK CTA CLINICAL HISTORY: acute rt sided weakness. TECHNIQUE: Imaging Protocol: Axial CT angiography was performed with multi-slice acquisition and mu lti-planar and/or 3D reconstructions. CONTRAST MATERIAL: Intravenous: Omnipaque 350 Contrast volume:structured data in ml COMPARISON: No exams were available for comparison FINDINGS: CTA Neck W: Aortic arch anatomy: The aortic arch anatomy is conventional and there is some plaque in the aortic a rch and origin of the great vessels but no tight stenosis at the origin the great vessels off the aor tic arch. Anterior circulation: Both common carotid arteries ascend with normal luminal diameters. On the left side the internal carotid artery is occluded at its origin. Not reconstituted in the nec k. It is reconstituted at the level of the intracavernous ICA. On the right side there is significant plaque at the carotid bifurcation and proximal right ICA. The re is moderate stenosis of the proximal right internal carotid artery in the neck. Above this level the vessels patent and is also demonstrated be patent skull base-carotid canal and cavernous sinus. Posterior circulation: Vertebral arteries originated conventional fashion off of the subclavian arteries and there is no obv ious stenosis at the origin of the vertebral arteries. Both vertebral arteries exhibit normal equal luminal diameters within the foramen transversarium. Both vertebral arteries contribute to the formation of the basilar artery at the skull base. CTA Brain W: Anterior circulation: The right internal carotid artery is patent in the skull base and cavernous sinus and supraclinoid as pect is patent. Right A1 segment is patent. Right middle cerebral artery patent. Both anterior cer ebral arteries are patent. No aneurysm seen at the level of the anterior communicating artery. On the left side the internal carotid artery is occluded at the origin of the ICA in the neck and rec onstituted at level the cavernous sinus. Left A1 segment is patent. There is occlusion of the left cerebral artery at its origin. Some flow is seen in peripheral vessels within the left sylvian fissu re. Posterior circulation: The basilar artery ascends in the midline. Distally it gives off patent bilateral superior cerebella r arteries. Above this level the basilar artery terminates as patent bilateral posterior cerebral arteries. There is no evidence of aneurysm at the tip of the basilar artery nor elsewhere in the [id number] is. CT BRAIN: There is no evidence of intracranial hemorrhage, mass effect, or shift of midline structures. There are no extra-axial fluid collections. Ventricles are not enlarged or shifted. There are no ring enh ancing lesions in the brain and no abnormal meningeal enhancement. There is periventricular hypodensity consistent with chronic small vessel disease. This is more prom inent on the left side. IMPRESSION: 1. Left internal carotid artery is occluded at its origin in the neck. It is reconstituted at the le win of the skull base-left cavernous sinus. There is moderate stenosis at the origin of the right IC A. 2. Patent vertebral arteries in the neck. 3. The left middle cerebral artery appears occluded on the immediate post-injection images. Flow is seen in more distal sylvian branches. 4. Basilar artery is patent as are its main branches. 5. Mildly asymmetric periventricular hypodensity on the left side. No intracranial hemorrhage. No s hift. Recommend MRI with diffusion imaging. Report called by myself to ER physician. RADIATION DOSE DELIVERED: 1,362.43mGy.cm Total DLP DATA REPOSITORY: All CT scans at this facility are submitted to the National Radiology Data Registry (NRDR) Dose Index Registry (DIR) with the [employer] ([employer]). RADIATION OPTIMIZATION: All CT scans at this facility use at least one of these dose optimization te chniques: automated exposure control; mA and/or kV adjustment per patient size (includes targeted exa ms where dose is matched to clinical indication); or iterative reconstruction.
--- NOTE | 2022-11-11 15:00 | DI.CT_ITS ---
Exam(s) CT HEAD - STROKE PROTOCOL EXAM: CT HEAD - STROKE PROTOCOL CLINICAL HISTORY: rt weakness 1315 onset. TECHNIQUE: Imaging Protocol: Axial computed tomography images with coronal and sagittal reformatted images were created and reviewed COMPARISON: CT CT SINUS W from 08/29/2019 FINDINGS: There are no skull fractures. There is no fluid in the visualized paranasal sinuses. There is no evidence of intracranial hemorrhage, mass effect, or shift of midline structures. There are no extra-axial fluid collections. The ventricles are not enlarged or shifted and there is no blo od within the ventricular system nor within the basal cisterns. No new focal findings cerebellar hemispheres. Periventricular hypodensity consistent with chronic sm all vessel disease. Small lacunar infarct noted left basal ganglia, age indeterminate. Smaller 2 mi llimeter lacunar infarct on right side similar location. There is vascular calcification in both vertebral arteries skull base as well as within intracavernou s internal carotid arteries. IMPRESSION: Bilateral lacunar infarcts, age indeterminate. Superimposed upon some periventricular hypodensity co nsistent with chronic small vessel disease. No large territorial infarct identified. No intracrania l hemorrhage. RADIATION DOSE DELIVERED: 891.13mGy.cm Total DLP DATA REPOSITORY: All CT scans at this facility are submitted to the National Radiology Data Registry (NRDR) Dose Index Registry (DIR) with the [employer] (ACR). RADIATION OPTIMIZATION: All CT scans at this facility use at least one of these dose optimization te chniques: automated exposure control; mA and/or kV adjustment per patient size (includes targeted exa ms where dose is matched to clinical indication); or iterative reconstruction.
[2022-11-11] MEDS: Normal Saline - Diluent 50 ML VIAL IJ (15:30)
[2022-11-11] MEDS: Omnipaque 350 MG/ML 100 ML BTL IJ (15:31)
--- NOTE | 2022-11-11 16:19 | W.ED.GENAD ---
Discharge Plan Disposition Patient Disposition: Transfer-Acute Inpatient Care Specific Acute Inpt Facility: [facility] Condition: Critical Discharge Details Clinical Impression: Acute cerebrovascular accident (CVA), Left carotid artery occlusion, Acute ischemic left MCA stroke Primary Care Provider: Grazyna Colón ED Provider: Kirk Argueta Home Meds and New Rx's Prescriptions: No Action atorvastatin 20 mg Tablet 20 mg PO DAILY spironolactone 25 mg Tablet 25 mg PO DAILY Rx Instructions: Pt takes at night time amlodipine 10 mg Tablet 10 mg PO DAILY clonidine 0.3 mg/24 hr Patch Weekly 1 patch TRANSDERMAL QWEEK aspirin [Christopher Low Dose Aspirin] 81 mg Tablet,Delayed Release (Dr/Ec) 81 mg PO DAILY calcitriol 0.25 mcg Capsule 0.25 mcg PO QMWF Rx Instructions: Mondays/Wednesdays & Fridays clonidine 0.1 mg/24 hr Patch Weekly 0.1 mg transdermal QWEEK candesartan 32 mg Tablet 32 mg PO QHS docusate sodium 100 mg Capsule 200 mg PO DAILY cholecalciferol (vitamin D3) 25 mcg (1,000 unit) Capsule 25 mcg PO DAILY carboxymethylcellulose sodium 0.5 % Dropperette 1 drp ophthalmic (eye) QID doxepin 3 mg Tablet 3 mg PO QHS hydralazine 10 mg Tablet 10 mg PO TID psyllium 500 mg Capsule 1 g PO DAILY Rx Instructions: Drink 8oz of liquid with each dose ramelteon 8 mg Tablet 8 mg PO QHS Discharge Data Discharge Date/Time-TO BE ENTERED AT DEPARTURE: 11/11/22 19:10 Medical Decision Making 1600 --82-year-old male with history of mass of the oropharynx recently diagnosed, diabetes, hyperlipidemia, hypertension, presents with right-sided paralysis and right hemineglect that started suddenly this afternoon, last known normal at 115 but symptoms likely started sometime after that. Patient with aphasia and NIH stroke scale at least 21. Blood pressure 165/81. Blood sugar normal. Patient was seen immediately on arrival. Stat CT of the head was obtained. Radiologist called around 4:00p noting difficulty reviewing studies secondary to technical issue, he has reviewed CT and CTA of the patient and notes left MCA occlusion as well as left ICA occlusion. No hemorrhage. No edema. Patient reassessed post imaging and continues to have persistent symptoms with no improvement. I confirmed with patient's that he is not on any blood thinners and has had no recent surgeries. He is still just within 3 hour window for initiation of thrombolysis and has no absolute contraindications. I spoke with the patient's and she provided informed consent to proceed with tPA. I spoke with charge nurse to ensure immediate administration. 1620 --[place] [facility] [place] and this was refused due to capacity I then immediately called [facility] transfer center to request transfer and awaiting callback as the review capacity. -- I had an opportunity to review the patient's medical record further, patient was seen here in the emergency department yesterday for sore throat and painful swallowing. He had a CT of the neck which was interpreted by radiology as follows: IMPRESSION: 1.? Prominent area of abnormal soft tissue thickening extending from the left side of the base the tongue down into the hypopharynx, extending craniocaudally for distance of 4-5 cm.? Suspicious for malignancy. 2.? There are multiple bilateral enlarged lymph nodes on both sides the neck, some which are centrally hypodense.? These are probably metastatic nodes.. 165 --patient reassessed and no change. 1799 --I spoke with [facility] neurology, Dr. Hui, and ED physician Dr. Rodriguez, I discussed ED presentation and course, they will accept patient in transfer. No additional therapeutics recommended at this time. Lab Data Lab results reviewed: Yes I reviewed the patient's lab results. Labs: Laboratory Tests Range/Units 11/11/22 11/11/22 11/11/22 16:01 16:01 16:49 WBC (4.4-10.8) 10^3/uL 21.62 H RBC (4.36-5.78) 10^6/uL 4.57 Hgb (13.5-17.5) g/dL 13.2 L Hct (40.0-50.0) % 39.4 L MCV (80-95) fL 86 MCH (27.0-33.0) pg 28.9 MCHC (32.0-36.0) % 33.5 RDW (11.8-14.1) % 12.5 Plt Count (130-400) 10^3/uL 337 MPV (8.0-11.0) fL 9.0 Immature Gran % 0.5 Neutrophils % 85.6 Lymphocytes % 4.7 Monocytes % 9.1 Eosinophils % 0.0 Basophils % 0.1 Nucleated RBC % (0.0-0.3) % 0.0 Absolute Neutrophils (1.2-6.7) 10^3/uL 18.51 H Absolute Lymphocytes (1.2-3.4) 10^3/uL 1.02 L Absolute Monocytes (0.1-0.8) 10^3/uL 1.97 H Absolute Eosinophils (0.0-0.7) 10^3/uL 0.00 Absolute Basophils (0.0-0.2) 10^3/uL 0.02 RBC Morphology Normal Sodium (136-145) mmol/L 137 Potassium (3.5-5.1) mmol/L 3.7 Chloride (98-107) mmol/L 102 Carbon Dioxide (21.0-32.0) mmol/L 23.6 Anion Gap (3-11) mmol/L 11.4 H BUN (7-18) mg/dL 33 H Creatinine (0.70-1.30) mg/dL 2.8 H Est GFR (CKD-EPI 2020) (mL/min/1.73m2) 21.84 Glucose (74-106) mg/dL 188 H Calcium (8.5-10.1) mg/dL 9.5 Magnesium (1.8-2.4) mg/dL 2.1 Total Bilirubin (0.2-1.0) mg/dL 0.4 AST (15-37) U/L 14 L ALT (16-63) U/L 14 L Alkaline Phosphatase (46-116) U/L 123 H Troponin I (<or=60) ng/L 58 Total Protein (6.4-8.2) g/dL 7.8 Albumin (3.4-5.0) g/dL 3.6 COVID-19 Source Nasal/Nares SARS-CoV-2 (PCR) (Negative) Negative HPI General Mode of arrival: EMS. Date/Time Provider Initiated Documentation: 11/11/22 15:11. Limitations to Documentation: altered mental status. Information obtained by: EMS. HPI Narrative: 82-year-old male here with altered mental status. History and review of systems limited secondary to altered mental status. Per EMS they found patient minimally responsive. Per family he was last known normal at 115 today. He left to take the dogs out and was found at the end of the driveway sent over in his car. Related Data Home Medications Medication Instructions Recorded Confirmed amlodipine 10 mg tablet 10 mg PO DAILY 08/29/19 11/11/22 aspirin 81 mg tablet,delayed 81 mg PO DAILY 08/29/19 11/11/22 release (Christopher Low Dose Aspirin) atorvastatin 20 mg tablet 20 mg PO DAILY 08/29/19 11/11/22 clonidine 0.3 mg/24 hr weekly 1 patch transdermal QWEEK 08/29/19 11/11/22 transdermal patch spironolactone 25 mg tablet 25 mg PO DAILY 08/29/19 11/11/22 calcitriol 0.25 mcg capsule 0.25 mcg PO QMWF 11/10/22 11/11/22 candesartan 32 mg tablet 32 mg PO QHS 11/10/22 11/11/22 carboxymethylcellulose sodium 0.5 1 drp ophthalmic (eye) QID 11/10/22 11/11/22 % eye drops in a dropperette cholecalciferol (vitamin D3) 25 25 mcg PO DAILY 11/10/22 11/11/22 mcg (1,000 unit) capsule clonidine 0.1 mg/24 hr weekly 0.1 mg transdermal QWEEK 11/10/22 11/11/22 transdermal patch docusate sodium 100 mg capsule 200 mg PO DAILY 11/10/22 11/11/22 doxepin 3 mg tablet 3 mg PO QHS 11/10/22 11/11/22 hydralazine 10 mg tablet 10 mg PO TID 11/10/22 11/11/22 psyllium 500 mg capsule 1 g PO DAILY 11/10/22 11/11/22 ramelteon 8 mg tablet 8 mg PO QHS 11/10/22 11/11/22 Allergies Allergy/AdvReac Type Severity Reaction Status Date / Time No Known Allergies Allergy Unverified 11/11/22 15:53 General Stated Complaint: CVA/TIA SHABANA: 2 Review of Systems Unobtainable due to mental status PFSH All Active Problems (Updated 11/11/22 @ 18:35 by Kirk Argueta MD) Mass of oropharynx (Acute) Acute cerebrovascular accident (CVA) (Acute) 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) Discharge planning issues (Acute) DVT prophylaxis (Acute) SANTOS (acute kidney injury) (Acute) Cellulitis of right ear (Acute) Diabetes (Chronic) Hyperlipidemia (Chronic) Hypertension (Chronic) Medical History (Updated 11/11/22 @ 18:35 by Kirk Argueta MD) Chronic kidney disease Social History Smoking/Tobacco Use Status: Current every day Tobacco Type: smokeless tobacco Smoking risk assessment performed?: Yes Alcohol Intake: never Drug use: Never Substance use type: does not use Do you feel safe at home: Yes Do you feel safe in your relationship?: Yes Exam Const General: cooperative HENMT Head: normocephalic and atraumatic Mouth: moist mucous membranes Eyes Conjunctivae: normal conjunctivae Sclera: normal sclerae EOM: EOM intact bilaterally Neck Neck: trachea midline and supple Resp Auscultation: clear to auscultation bilaterally, no rales, no rhonchi and no wheezes Cardio Rate: regular rate and not tachycardic Rhythm: regular rhythm GI Palpation: soft, not firm, no guarding, no masses, not rigid and nontender Skin General skin exam: no rashes or lesions noted Neuro General: patient awake and does not move all extremities Cranial Nerves: PERRL, facial strength abnormal (Right facial droop) and other (Left gaze with right hemineglect) Cognition: abnormal cognition Speech: other (Aphasia, does not seem to understand commands and nonverbal) Motor: other (No movement of right arm or right leg, spontaneous movements of LUE LLE) Other: Patient is not following commands, right facial droop is noted al Extrem General: no edema Psych Appearance: grossly normal Course Vital Signs Vital signs: Vital Signs Temperature 36.0 C L 11/11/22 15:42 Pulse 92 H 11/11/22 15:42 Blood Pressure 181/85 H 11/11/22 15:42 Pulse Oximetry 96 11/11/22 15:42 Temperature 36.0 C L 11/11/22 15:42 Temperature Source Axillary 11/11/22 15:42 Pulse 92 H 11/11/22 15:42 Respiratory Effort 11/11/22 15:47 Respiratory Depth Normal 11/11/22 15:47 Respiratory Pattern Normal 11/11/22 15:47 Blood Pressure 181/85 H 11/11/22 15:42 Blood Pressure Position Sitting 11/11/22 15:42 Pulse Oximetry 96 11/11/22 15:42 Oxygen Delivery Method Room Air 11/11/22 15:42 Oxygen Flow Rate 0 11/11/22 15:42 Pain Level 0 11/11/22 15:42 Critical Care Time Critical Care Time Critical Care Time: Yes Total Critical Care Time: 125 Attestation: I spent greater than 125 minutes addressing this patient's immediate life threats. Please see MDM section of note. This time was spent engaged in work directly related to the patient's care, exclusive of separate procedures, and failure to initiate these interventions would have likely resulted in clinically significant or life threatening deterioration in the patient's condition.
[2022-11-11 16:23] LABS: Absolute Monocyte Count 1.97 10^3/uL (0.1-0.8); Absolute Neutrophil Count 18.51 10^3/uL (1.2-6.7); Basophils % 0.1; HCT 39.4 % (40.0-50.0); HGB 13.2 g/dL (13.5-17.5); Immature Grans % 0.5; Lymphocytes % 4.7; MCH 28.9 pg (27.0-33.0); MCHC 33.5 % (32.0-36.0); MCV 86 fL (80-95); Monocytes % 9.1; Neutrophils % 85.6; Platelet Count 337 10^3/uL (130-400); RBC 4.57 10^6/uL (4.36-5.78); RDW 12.5 % (11.8-14.1); RDW-SD 39.4 fL; WBC 21.62 10^3/uL (4.4-10.8)
[2022-11-11 16:26] LABS: Absolute Basophil Count 0.02 10^3/uL (0.0-0.2); Absolute Lymphocyte Count 1.02 10^3/uL (1.2-3.4)
[2022-11-11 16:28] LABS: ALT 14 U/L (16-63); AST 14 U/L (15-37); Albumin 3.6 g/dL (3.4-5.0); Alkaline Phosphatase 123 U/L (46-116); Anion Gap 11.4 mmol/L (3-11); BUN 33 mg/dL (7-18); Bilirubin, Total 0.4 mg/dL (0.2-1.0); CO2 23.6 mmol/L (21.0-32.0); CREATININE 2.8 mg/dL (0.70-1.30); Calcium 9.5 mg/dL (8.5-10.1); Chloride 102 mmol/L (98-107); Estimated GFR 21.84 (mL/min/1.73m2); Glucose 188 mg/dL (74-106); Magnesium 2.1 mg/dL (1.8-2.4); Potassium 3.7 mmol/L (3.5-5.1); Sodium 137 mmol/L (136-145); Total Protein 7.8 g/dL (6.4-8.2); Troponin I 58 ng/L (<or=60)
[2022-11-11 16:56] LABS: Diff Comment Agrees w/ Instrument; RBC Morphology Normal
[2022-11-11 16:57] LABS: Source Nasal/Nares
[2022-11-11 17:31] LABS: COVID-19 PCR Negative (Negative)
[2022-11-11] MEDS: Normal Saline 1,000 ML 125 ML IV (17:39)
== END 2022-11-11 19:10 | disposition short-term general hospital (02) ==
PROVIDERS: Emergency Provider Student in an Organized Health Care Education/Training Program; PCP Student in an Organized Health Care Education/Training Program
DX: I63.412 Cerebral infarction due to embolism of left middle cerebral artery (principal); I65.22 Occlusion and stenosis of left carotid artery; I69.192 Facial weakness following nontraumatic intracerebral hemorrhage; I12.9 Hypertensive chronic kidney disease with stage 1 through stage 4 chronic kidney disease, or unspecified chronic kidney disease; E11.22 Type 2 diabetes mellitus with diabetic chronic kidney disease; N18.9 Chronic kidney disease, unspecified; Z20.822 Contact with and (suspected) exposure to COVID-19; Z79.82 Long term (current) use of aspirin
CPT/HCPCS: 70496; 70498; 80053; 87635; 96361; 96365; 99291; 99292; 70450; 83735; 84484; 85025; J2997; J3490